=== PATIENT | female | born 1970 | race African-American/Black ===

== ENCOUNTER 2016-12-06 15:24 | Emergency (ER) | payer SELFPAY ==
[~2016-12-06] VITALS: Ht 170.2 cm; Wt 96.0 kg
[~2016-12-06 15:24] MED LIST: AMLO5TAB22 PO
[2016-12-06 15:26] VITALS: BP 148/98; PULSE 97; RESP 20; TEMP 98.3; O2SAT 97
--- NOTE | 2016-12-06 16:05 | RADRPT ---
EXAM DATE/TIME: 12/06/2016 15:37 [facility] COMPARISON: CHEST SINGLE AP, January 14, 2016, 13:02. INDICATIONS : Chest pain and numbness down left arm. MEDICAL HISTORY : Hypertension. SURGICAL HISTORY : None. ENCOUNTER: Initial ACUITY: 1 day PAIN SCORE: 8/10 LOCATION: Bilateral chest FINDINGS: A single view of the chest demonstrates the lungs to be symmetrically aerated without evidence of mas s, infiltrate or effusion. The cardiomediastinal contours are unremarkable. Osseous structures are intact. CONCLUSION: No acute disease. Michel Glynn MD on December 06, 2016 at 16:00 Board Certified Radiologist. This report was verified electronically.
[2016-12-06 16:30] LABS: AUTOMATED NEUTROPHIL # 2.2 TH/MM3 (1.8-7.7); BASOPHIL # 0.1 TH/MM3 (0-0.2); BASOPHIL % 1.2 % (0.0-2.0); EOSINOPHIL # 0.2 TH/MM3 (0-0.4); EOSINOPHIL % 4.5 % (0.0-4.0); HEMATOCRIT 34.1 % (35.0-46.0); HEMO FLAGS DIFF FINAL; LYMPH % 38.6 % (9.0-44.0); LYMPHOCYTE # 1.7 TH/MM3 (1.0-4.8); MEAN CELL VOLUME 77.3 FL (80.0-100.0); MEAN CORPUSCULAR HEMOGLOBIN 26.2 PG (27.0-34.0); MEAN CORPUSCULAR HGB CONC 33.9 % (32.0-36.0); MONO % 4.9 % (0.0-8.0); NEUT % 50.8 % (16.0-70.0); PLATELET COUNT 401 TH/MM3 (150-450); RED BLOOD COUNT 4.41 MIL/MM3 (4.00-5.30); WHITE BLOOD COUNT 4.3 TH/MM3 (4.0-11.0)
[2016-12-06 16:56] LABS: ANION GAP 10 MEQ/L (5-15); BICARBONATE 25.5 MEQ/L (21.0-32.0); BLOOD UREA NITROGEN 8 MG/DL (7-18); CHLORIDE 103 MEQ/L (98-107); GLOMERULAR FILTRATION RATE 85 ML/MIN (>89); POTASSIUM 3.5 MEQ/L (3.5-5.1); SODIUM (NA) 138 MEQ/L (136-145)
[2016-12-06 17:01] LABS: BETA HCG QUANT LESS THAN 1 MIU/ML (0-5); CREATINE KINASE 190 U/L (26-192)
[2016-12-06 17:14] LABS: CKMB 0.5 NG/ML (0.5-3.6)
[2016-12-06 19:02] VITALS: O2SAT 99
[2016-12-06 19:50] VITALS: BP 160/92; PULSE 78; RESP 18; O2SAT 98
--- NOTE | 2016-12-06 20:19 | PD ---
HPI Chief Complaint: Chest Pain Time Seen by Provider: 18:48 Travel History International Travel<30 days: No Contact w/Intl Traveler<30days: No Traveled to known affect area: No History of Present Illness HPI Is a 46-year-old female presents emergency Department with chest pain the left side of her chest as well as some pain in her left elbow. Patient states this is been on and off going for some time. Patient is still menstruating, has a history of high blood pressure without high cholesterol and is a nonsmoker. No family history of early MS. Patient did have a stress test approximately 11 months ago which was completely within normal limits. Patient states she also does have a history of anxiety. States his symptoms been going on all week. Denies any shortness of breath nausea or vomiting. PFSH Past Medical History Heart Rhythm Problems: No Cardiac Catheterization: No Cardiovascular Problems: Yes (HEART MURMUR) High Cholesterol: No Congestive Heart Failure: No Diabetes: No Diminished Hearing: No Gastrointestinal Disorders: Yes (IBS) Hypertension: Yes Thyroid Disease: Yes ?: Not : 7 Para: 5 Miscarriage: 2 Ovarian Cysts: Yes Tubal Ligation: Yes Past Surgical History Section: Yes (X1) Coronary Artery Bypass Graft: No Gynecologic Surgery: Yes () Family History Family Myocardial Infarction: Yes Social History Alcohol Use: Yes (WINE GLASSES EVERY NIGHT) Tobacco Use: Yes Substance Use: No Allergies-Medications (Allergen,Severity, Reaction): Coded Allergies: Codeine (Verified Allergy, Severe, 12/06/16) Hydrocodone (Verified Allergy, Severe, 12/06/16) Shellfish (Verified Allergy, Severe, 12/06/16) Reported Meds & Prescriptions Reported Meds & Active Scripts Active Amlodipine Besylate 5 mg (Amlodipine Besylate) 5 Mg Tab 1 Tab PO DAILY Review of Systems Except as stated in HPI: all other systems reviewed are Neg Physical Exam Narrative GENERAL: Well-developed well-nourished no apparent distress] SKIN: Warm and dry. HEAD: Atraumatic. Normocephalic. EYES: Pupils equal and round. No scleral icterus. No injection or drainage. ENT: No nasal bleeding or discharge. Mucous membranes pink and moist. NECK: Trachea midline. No JVD. CARDIOVASCULAR: Regular rate and rhythm. No murmur appreciated. 2+ bilateral equal pulses in all 4 extremities. RESPIRATORY: No accessory muscle use. Clear to auscultation. Breath sounds equal bilaterally. GASTROINTESTINAL: Abdomen soft, non-tender, nondistended. Hepatic and splenic margins not palpable. MUSCULOSKELETAL: No obvious deformities. No clubbing. No cyanosis. No edema. NEUROLOGICAL: Awake and alert. No obvious cranial nerve deficits. Motor grossly within normal limits. Normal speech. PSYCHIATRIC: Appropriate mood and affect; insight and judgment normal. Data Data Last Documented VS Vital Signs Date Time Temp Pulse Resp B/P Pulse Ox O2 Delivery O2 Flow Rate FiO2 12/06/16 19:50 78 18 160/92 98 Room Air 12/06/16 18:59 2 12/06/16 15:26 98.3 Orders Electrocardiogram (12/06/16 15:36) Complete Blood Count With Diff (12/06/16 15:36) Basic Metabolic Panel (Bmp) (12/06/16 15:36) Ckmb (Isoenzyme) Profile (12/06/16 15:36) Troponin I (12/06/16 15:36) Chest, Single Ap (12/06/16 15:36) Iv Access Insert/Monitor (12/06/16 15:36) Ecg Monitoring (12/06/16 15:36) Oxygen Administration (12/06/16 15:36) Oximetry (12/06/16 15:36) Beta Hcg (Quant/Titer) (12/06/16 15:36) CKMB (12/06/16 16:06) CKMB% (12/06/16 16:06) Electrocardiogram (12/06/16 ) Troponin I (12/06/16 18:49) Acetamin-Hydrocod 325-5 Mg (Earth 5-325 (12/06/16 20:45) Ondansetron Odt (Zofran Odt) (12/06/16 20:45) Labs Laboratory Tests Test 12/06/16 12/06/16 16:06 19:35 White Blood Count 4.3 TH/MM3 Red Blood Count 4.41 MIL/MM3 Hemoglobin 11.6 GM/DL Hematocrit 34.1 % Mean Corpuscular Volume 77.3 FL Mean Corpuscular Hemoglobin 26.2 PG Mean Corpuscular Hemoglobin 33.9 % Concent Red Cell Distribution Width 15.0 % Platelet Count 401 TH/MM3 Mean Platelet Volume 7.7 FL Neutrophils (%) (Auto) 50.8 % Lymphocytes (%) (Auto) 38.6 % Monocytes (%) (Auto) 4.9 % Eosinophils (%) (Auto) 4.5 % Basophils (%) (Auto) 1.2 % Neutrophils # (Auto) 2.2 TH/MM3 Lymphocytes # (Auto) 1.7 TH/MM3 Monocytes # (Auto) 0.2 TH/MM3 Eosinophils # (Auto) 0.2 TH/MM3 Basophils # (Auto) 0.1 TH/MM3 CBC Comment DIFF FINAL Differential Comment Sodium Level 138 MEQ/L Potassium Level 3.5 MEQ/L Chloride Level 103 MEQ/L Carbon Dioxide Level 25.5 MEQ/L Anion Gap 10 MEQ/L Blood Urea Nitrogen 8 MG/DL Creatinine 0.87 MG/DL Estimat Glomerular Filtration 85 ML/MIN Rate Random Glucose 87 MG/DL Calcium Level 8.8 MG/DL Total Creatine Kinase 190 U/L Creatine Kinase MB 0.5 NG/ML Troponin I LESS THAN 0.02 LESS THAN 0.02 NG/ML NG/ML Human Chorionic Gonadotropin, LESS THAN 1 Quant MIU/ML MDM Medical Decision Making Medical Screen Exam Complete: Yes Emergency Medical Condition: Yes Interpretation(s) EKG shows normal sinus rhythm with a left axis deviation late R-wave transition. No concerning ST T changes. Intervals within normal limits. Probable LVH. This is an abnormal EKG. EKG was repeated 4 hours after arrival and shows no change. Differential Diagnosis ACS seems unlikely, MS seems unlikely, chest wall pain, pneumonia, pericarditis, Narrative Course Patient roomed in the emergency department, troponins are negative 2, she appears well, chest x-ray negative, there are some non-concerning changes on her EKG mostly axis changes. Patient does have a stress test less than a year ago. Discussed with the patient that given her negative stress test is highly unlikely that should her symptoms are from heart at this time. I've suggested that she should consider chest pain center admission for further evaluation but she would rather go home and follow up with her primary care physician. Discussed with her that if symptoms return she should return to emergency department immediately. She was offered pain medicine and declined. Discussed that she needs to follow up with her primary care physician within the next week if she is not at a 0% risk of major adverse cardiac event. After this discussion she was re-offered admission to the chest pain center and again declined. Diagnosis Primary Impression: CHEST PAIN, UNSPECIFIED Referrals: Agustin Armendariz MD Disposition: 01 DISCHARGE HOME Condition: Stable Juan Valderrama MD Dec 06, 2016 20:19
[2016-12-06] MEDS ORDERED: ONDANSETRON ODT 4 MG TAB PO ONE (20:45)
[2016-12-06] MEDS ORDERED: ACETAMINOPHEN/HYDROcodone 325 MG/5 MG TAB PO ONE (20:45)
--- NOTE | 2016-12-07 16:55 | EKG ---
Date Performed: 12/06/2016 Time Performed: 19:33:18 PTAGE: 46 years EKG: Sinus rhythm VOLTAGE CRITERIA FOR LVH Since previous tracing, no significant change noted ABNORMAL ECG PREVIOUS TRACING : 12/06/2016 15.44 DOCTOR: Rodrigo Young Interpretating Date/Time 12/07/2016 16:53:47
--- NOTE | 2016-12-07 16:55 | EKG ---
Date Performed: 12/06/2016 Time Performed: 15:44:14 PTAGE: 46 years EKG: Sinus rhythm VOLTAGE CRITERIA FOR LVH Since previous tracing, no significant change noted ABNORMAL ECG PREVIOUS TRACING : 01/14/2016 18.28.58 DOCTOR: Rodrigo Young Interpretating Date/Time 12/07/2016 16:53:34
== END 2016-12-06 20:58 | disposition home or self-care (01) ==
LOC: NEPA 15:24
DX: R07.9 Chest pain, unspecified (principal); R94.31 Abnormal electrocardiogram [ECG] [EKG]; I10 Essential (primary) hypertension; K58.9 Irritable bowel syndrome, unspecified; Z72.0 Tobacco use
CPT/HCPCS: 71010; 80048; 82550; 82552; 84484; 84702; 85025; 93005

== ENCOUNTER 2017-05-07 09:58 | Observation (INO) | payer MEDICAID ==
[2017-05-07 10:00] VITALS: BP 194/95; PULSE 84; RESP 16; TEMP 97.8; O2SAT 99
[2017-05-07 10:12] VITALS: BP 158/89; PULSE 92; RESP 16; O2SAT 100
[2017-05-07] MEDS ORDERED: ASPIRIN 325 MG TAB PO ONE (10:15)
[2017-05-07 10:23] VITALS: O2SAT 100
--- NOTE | 2017-05-07 10:30 | PD ---
HPI Chief Complaint: Chest Pain Time Seen by Provider: 10:09 Travel History International Travel<30 days: No Contact w/Intl Traveler<30days: No Traveled to known affect area: No History of Present Illness HPI 46 years old female complains of chest pain. Patient states that she woke up this morning with numbness tingling sensation left arm and started having left- sided chest pain. Patient states the chest pain. Left-sided chest pressure pain with radiation to the neck to the back. Patient denies any nausea vomiting. Patient states that she had diaphoresis this morning. Patient states that the chest pain is not associated with exertion. Patient was seen in emergency room in December 2015 with chest pain. Treadmill stress test at that time was normal. Patient was seen in emergency room again in November 2016 with chest pain. 2 sets of cardiac enzymes and EKG were negative, and patient was discharged home. Patient has history hypertension, hyperlipidemia. Patient denies history diabetes. Patient is a nonsmoker. Patient has family history heart disease. On a scale of 1-10 the pain is is 6. PFSH Past Medical History Heart Rhythm Problems: No Cardiac Catheterization: No Cardiovascular Problems: Yes (HEART MURMUR) High Cholesterol: No Congestive Heart Failure: No Diabetes: No Diminished Hearing: No Gastrointestinal Disorders: Yes (IBS) Heparin Induced Thrombocytopen: No Hypertension: Yes Thyroid Disease: Yes Influenza Vaccination: No ?: Not : 7 Para: 5 Miscarriage: 2 Ovarian Cysts: Yes Tubal Ligation: Yes Past Surgical History Section: Yes (X1) Coronary Artery Bypass Graft: No Gynecologic Surgery: Yes () Family History Family Myocardial Infarction: Yes (maternal grandmother) Social History Alcohol Use: Yes (WINE GLASSES EVERY NIGHT) Tobacco Use: Yes Substance Use: No Allergies-Medications (Allergen,Severity, Reaction): Coded Allergies: Codeine (Verified Allergy, Severe, 05/07/17) Hydrocodone (Verified Allergy, Severe, 05/07/17) Shellfish (Verified Allergy, Severe, 05/07/17) Reported Meds & Prescriptions Reported Meds & Active Scripts Active No Active Prescriptions or Reported Medications Review of Systems General / Constitutional: No: Fever Eyes: No: Visual changes HENT: No: Headaches Cardiovascular: Positive: Chest Pain or Discomfort Respiratory: No: Shortness of Breath Gastrointestinal: No: Abdominal Pain Genitourinary: No: Dysuria Musculoskeletal: No: Pain Skin: No Rash Neurologic: No: Weakness Psychiatric: No: Depression Endocrine: No: Polydipsia Hematologic/Lymphatic: No: Easy Bruising Physical Exam Narrative GENERAL: Well-nourished, well-developed patient. SKIN: Focused skin assessment warm/dry. HEAD: Normocephalic. EYES: No scleral icterus. No injection or drainage. NECK: Supple, trachea midline. No JVD or lymphadenopathy. CARDIOVASCULAR: Regular rate and rhythm without murmurs, gallops, or rubs. RESPIRATORY: Breath sounds equal bilaterally. No accessory muscle use. GASTROINTESTINAL: Abdomen soft, non-tender, nondistended. MUSCULOSKELETAL: No cyanosis, or edema. BACK: Nontender without obvious deformity. No CVA tenderness. Neurologic exam normal. Data Data Last Documented VS Vital Signs Date Time Temp Pulse Resp B/P Pulse Ox O2 Delivery O2 Flow Rate FiO2 05/07/17 10:23 100 Room Air 05/07/17 10:12 92 16 158/89 05/07/17 10:00 97.8 Orders Electrocardiogram (05/07/17 10:14) Complete Blood Count With Diff (05/07/17 10:14) Comprehensive Metabolic Panel (05/07/17 10:14) Creatine Kinase (Cpk) (05/07/17 10:14) Troponin I (05/07/17 10:14) Prothrombin Time / Inr (Pt) (05/07/17 10:14) Act Partial Throm Time (Ptt) (05/07/17 10:14) Urinalysis - C+S If Indicated (05/07/17 10:14) Chest, Single Ap (05/07/17 10:14) Iv Access Insert/Monitor (05/07/17 10:14) Ecg Monitoring (05/07/17 10:14) Oximetry (05/07/17 10:14) Aspirin (Aspirin) (05/07/17 10:15) Labs Laboratory Tests Test 05/07/17 05/07/17 10:20 10:34 White Blood Count 5.9 TH/MM3 Red Blood Count 4.56 MIL/MM3 Hemoglobin 11.3 GM/DL Hematocrit 35.6 % Mean Corpuscular Volume 78.1 FL Mean Corpuscular Hemoglobin 24.8 PG Mean Corpuscular Hemoglobin 31.8 % Concent Red Cell Distribution Width 16.0 % Platelet Count 403 TH/MM3 Mean Platelet Volume 7.3 FL Neutrophils (%) (Auto) 63.5 % Lymphocytes (%) (Auto) 26.5 % Monocytes (%) (Auto) 4.5 % Eosinophils (%) (Auto) 4.5 % Basophils (%) (Auto) 1.0 % Neutrophils # (Auto) 3.8 TH/MM3 Lymphocytes # (Auto) 1.6 TH/MM3 Monocytes # (Auto) 0.3 TH/MM3 Eosinophils # (Auto) 0.3 TH/MM3 Basophils # (Auto) 0.1 TH/MM3 CBC Comment DIFF FINAL Differential Comment Prothrombin Time 10.2 SEC Prothromb Time International 0.9 RATIO Ratio Activated Partial 29.4 SEC Thromboplast Time Sodium Level 139 MEQ/L Potassium Level 4.0 MEQ/L Chloride Level 104 MEQ/L Carbon Dioxide Level 25.7 MEQ/L Anion Gap 9 MEQ/L Blood Urea Nitrogen 10 MG/DL Creatinine 0.93 MG/DL Estimat Glomerular Filtration 79 ML/MIN Rate Random Glucose 112 MG/DL Calcium Level 9.3 MG/DL Total Bilirubin 0.8 MG/DL Aspartate Amino Transf 14 U/L (AST/SGOT) Alanine Aminotransferase 15 U/L (ALT/SGPT) Alkaline Phosphatase 103 U/L Total Creatine Kinase 170 U/L Troponin I LESS THAN 0.02 NG/ML Total Protein 8.9 GM/DL Albumin 4.1 GM/DL Urine Color YELLOW Urine Turbidity CLEAR Urine pH 6.0 Urine Specific [place] 1.029 Urine Protein TRACE mg/dL Urine Glucose (UA) NEG mg/dL Urine Ketones NEG mg/dL Urine Occult Blood NEG Urine Nitrite NEG Urine Bilirubin NEG Urine Urobilinogen LESS THAN 2.0 MG/DL Urine Leukocyte Esterase NEG Urine WBC LESS THAN 1 /hpf Urine Squamous Epithelial 2 /hpf Cells Urine Mucus FEW /lpf Microscopic Urinalysis Comment CULT NOT INDICATED MDM Medical Decision Making Medical Screen Exam Complete: Yes Emergency Medical Condition: Yes Interpretation(s) 11:09 AM. EKG shows sinus rhythm nonspecific ST-T wave change. CBC within normal limit. MCV 78.1. UA is negative. Last Impressions Chest X-Ray 05/07/17 1014 Signed Impressions: Service Date/Time: Sunday, May 07, 2017 10:26 - CONCLUSION: No acute cardiopulmonary disease. Jerry Gustafson MD 11:28 AM. Cardiac enzymes are normal. Differential Diagnosis Differential diagnosis: Angina, GA, PE, pneumothorax, musculoskeletal. Narrative Course 46 years old female with chest pain. Aspirin 325 g by mouth given. Patient will be admitted to the chest pain center. Diagnosis Primary Impression: CHEST PAIN, UNSPECIFIED Admitting Information Admitting Physician Requests: Observation Scripts No Active Prescriptions or Reported Meds Suman Garvey MD May 07, 2017 10:30
[2017-05-07 10:44] LABS: AUTOMATED NEUTROPHIL # 3.8 TH/MM3 (1.8-7.7); BASOPHIL # 0.1 TH/MM3 (0-0.2); EOSINOPHIL # 0.3 TH/MM3 (0-0.4); EOSINOPHIL % 4.5 % (0.0-4.0); HEMATOCRIT 35.6 % (35.0-46.0); HEMO FLAGS DIFF FINAL; LYMPH % 26.5 % (9.0-44.0); LYMPHOCYTE # 1.6 TH/MM3 (1.0-4.8); MEAN CELL VOLUME 78.1 FL (80.0-100.0); MEAN CORPUSCULAR HEMOGLOBIN 24.8 PG (27.0-34.0); MEAN CORPUSCULAR HGB CONC 31.8 % (32.0-36.0); MONO % 4.5 % (0.0-8.0); NEUT % 63.5 % (16.0-70.0); PLATELET COUNT 403 TH/MM3 (150-450); RED BLOOD COUNT 4.56 MIL/MM3 (4.00-5.30); WHITE BLOOD COUNT 5.9 TH/MM3 (4.0-11.0)
[2017-05-07 10:53] LABS: APTT (PATIENT) 29.4 SEC (24.3-30.1); INTERNATIONAL NORMALIZED RATIO 0.9 RATIO; PROTHROMBIN TIME - PATIENT 10.2 SEC (9.8-11.6)
[2017-05-07 11:01] LABS: BLOOD, URINE NEG (NEG); COMMENT (UR) CULT NOT INDICATED; CULTURE IF INDICATED CULT NOT INDICATED; GLUCOSE,URINE NEG (NEG); KETONE, URINE NEG (NEG); MUCUS URINE FEW /lpf (OCC); NITRITE,URINE NEG (NEG); SQUAMOUS EPITHELIAL CELL URINE 2 /hpf (0-5); URINE COLOR YELLOW (YELLW/STRAW)
[2017-05-07 11:06] LABS: ALKALINE PHOSPHATASE 103 U/L (45-117); ALT (GPT) 15 U/L (10-53); ANION GAP 9 MEQ/L (5-15); AST (GOT) 14 U/L (15-37); BICARBONATE 25.7 MEQ/L (21.0-32.0); BLOOD UREA NITROGEN 10 MG/DL (7-18); CHLORIDE 104 MEQ/L (98-107); CREATINE KINASE 170 U/L (26-192); GLOMERULAR FILTRATION RATE 79 ML/MIN (>89); SODIUM (NA) 139 MEQ/L (136-145); TOTAL BILIRUBIN ADULT 0.8 MG/DL (0.2-1.0)
--- NOTE | 2017-05-07 11:21 | RADRPT ---
EXAM DATE/TIME: 05/07/2017 10:26 [facility] COMPARISON: CHEST SINGLE AP, December 06, 2016, 15:37. INDICATIONS : Chest pain starting today MEDICAL HISTORY : None. SURGICAL HISTORY : None. ENCOUNTER: Initial ACUITY: 1 day PAIN SCORE: 8/10 LOCATION: Left chest FINDINGS: The lungs are clear without infiltrate, nodule, or mass. There is no appreciable pleural effusion fo r technique. Heart and mediastinum are unremarkable. CONCLUSION: No acute cardiopulmonary disease. Jerry Gustafson MD on May 07, 2017 at 11:19 Board Certified Radiologist. This report was verified electronically.
[2017-05-07] MEDS ORDERED: ACETAMINOPHEN 500 MG CPLT PO PRN (11:45)
[2017-05-07] MEDS ORDERED: ONDANSETRON HCL 4 MG/2 ML VIAL IV PRN (11:45)
[2017-05-07] MEDS ORDERED: SODIUM CHLORIDE 0.9% FLUSH 10 ML FLUSH IV FLUSH PRN (11:45)
[2017-05-07] MEDS ORDERED: cloNIDine HCL 0.1 MG TAB PO PRN (13:15)
[2017-05-07] MEDS ORDERED: KETOROLAC TROMETHAMINE 30 MG/ML (IVP) VIAL IVP ONE (13:15)
--- NOTE | 2017-05-07 13:15 | HHI.HP ---
[facility] Primary Care Physician Michel Burger MD Chief Complaint Chest pain History of Present Illness This is a 46-year-old female that presents to the ED via private vehicle with her girlfriend with a complaint of developing a left-sided chest discomfort this morning. She states she woke up at 7:00 and felt sweaty. By the same time she has some numbness and tingling in her left arm. Then a few minutes she developed a left-sided chest discomfort which she describes as a tightness beneath the left breast. She states it felt like it was a gas sensation. It was intermittent discomfort lasting about 10-15 minutes at a time. Found nothing in particular bring on the discomfort. Nothing really seemed to worsen it. She states she had a similar episode about a year ago and states that is when she had her stress test here. Initially she cannot think of anything that may have caused the discomfort but cannot recall carrying heavy groceries last evening. She states there have enough that she had to stop, put things down and make an extra next her trip. Denies recent illness. Denies fevers or chills. Review of Systems General: Patient denies fevers, chills recent, and recent travel HEENT: Patient denies headache, sore throat, difficulty swallowing. Cardiovascular: Has the chest discomfort as mentioned above. Denies sensation of heart beating rapidly or irregularly. No syncope. She states she woke up sweating. Respiratory: She was initially short of breath. Denies inspirational chest discomfort. Denies coughing wheezing or hemoptysis. GI: Patient denies nausea, vomiting, diarrhea, abdominal pain, bloody stools. Musculoskeletal: Patient denies joint pain or edema. Denies calf pain or edema. Neurovascular: Complained of numbness and tingling in her left arm initially. Patient denies weakness in extremities. Denies headache. Endocrine: Denies polyuria and polydipsia. Hematologic: Denies easy bruising. Skin: Denies rash or itching. Past Family Social History Allergies: Coded Allergies: Codeine (Verified Allergy, Severe, 05/07/17) Hydrocodone (Verified Allergy, Severe, 05/07/17) Shellfish (Verified Allergy, Severe, 05/07/17) Past Medical History States that she was told that she has hypertension but has never been on medication. Denies hyperlipidemia, diabetes, and CAD. She was a past smoker but quit 2 years ago. Past Surgical History and tubal ligation. Reported Medications Reported Meds & Active Scripts Active No Active Prescriptions or Reported Medications Active Ordered Medications Current Medications Medications (Trade) Dose Ordered Sig/Jovany Route Start Time Stop Time Status Last Admin (NS Flush) 2 ml UNSCH PRN IV FLUSH 05/07/17 11:45 (NS Flush) 2 ml BID IV FLUSH 05/07/17 21:00 (Tylenol) 500 mg Q4H PRN PO 05/07/17 11:45 (Zofran Inj) 4 mg Q6H PRN IV 05/07/17 11:45 Family History She states that her brother has CAD and had a stent in his 30s. Social History Patient quit smoking cigarettes 2 years ago but prior that she smoked approximately one half pack of cigarettes daily for 6 years. Has an occasional glass of wine. Denies illicit drugs. 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 Physical Exam Vital Signs Vital Signs Date Time Temp Pulse Resp B/P Pulse Ox O2 Delivery O2 Flow Rate FiO2 05/07/17 10:23 100 Room Air 05/07/17 10:12 92 16 158/89 100 Room Air 05/07/17 10:00 97.8 84 16 194/95 99 Physical Exam GENERAL: This is a well-nourished, well-developed patient, in no apparent distress. Patient speaks in clear complete sentences. Patient is pleasant. HEENT: Head is atraumatic and normocephalic. Neck is supple without lymphadenopathy and trachea is midline. No JVD or carotid bruits. CARDIOVASCULAR: Regular rate and rhythm without murmurs, gallops, or rubs. RESPIRATORY: Clear to auscultation. Breath sounds equal bilaterally. No wheezes , rales, or rhonchi. Essentially her entire left chest wall is tender. More so in the left upper chest as well as beneath her left breast. This is the discomfort that she has been having.. No use of accessory muscles. GASTROINTESTINAL: Abdomen is nontender, nondistended. Abdomen soft. No obvious pulsatile mass or bruit. No CVA tenderness. Strong femoral pulses bilaterally. Normal bowel sounds in all quadrants. MUSCULOSKELETAL: Patient is moving upper and lower extremities freely. No calf tenderness or edema, no Homans sign. Strong pulses in upper and lower extremities. NEUROLOGICAL: Patient is alert and oriented. Cranial nerves 2-12 are grossly intact. No focal deficits and speech is clear. SKIN: No rash and turgor is normal. Laboratory Laboratory Tests Test 05/07/17 05/07/17 10:20 10:34 White Blood Count 5.9 Red Blood Count 4.56 Hemoglobin 11.3 Hematocrit 35.6 Mean Corpuscular Volume 78.1 Mean Corpuscular Hemoglobin 24.8 Mean Corpuscular Hemoglobin 31.8 Concent Red Cell Distribution Width 16.0 Platelet Count 403 Mean Platelet Volume 7.3 Neutrophils (%) (Auto) 63.5 Lymphocytes (%) (Auto) 26.5 Monocytes (%) (Auto) 4.5 Eosinophils (%) (Auto) 4.5 Basophils (%) (Auto) 1.0 Neutrophils # (Auto) 3.8 Lymphocytes # (Auto) 1.6 Monocytes # (Auto) 0.3 Eosinophils # (Auto) 0.3 Basophils # (Auto) 0.1 CBC Comment DIFF FINAL Differential Comment Prothrombin Time 10.2 Prothromb Time International 0.9 Ratio Activated Partial 29.4 Thromboplast Time Sodium Level 139 Potassium Level 4.0 Chloride Level 104 Carbon Dioxide Level 25.7 Anion Gap 9 Blood Urea Nitrogen 10 Creatinine 0.93 Estimat Glomerular Filtration 79 Rate Random Glucose 112 Calcium Level 9.3 Total Bilirubin 0.8 Aspartate Amino Transf 14 (AST/SGOT) Alanine Aminotransferase 15 (ALT/SGPT) Alkaline Phosphatase 103 Total Creatine Kinase 170 Troponin I LESS THAN 0.02 Total Protein 8.9 Albumin 4.1 Urine Color YELLOW Urine Turbidity CLEAR Urine pH 6.0 Urine Specific [place] 1.029 Urine Protein TRACE Urine Glucose (UA) NEG Urine Ketones NEG Urine Occult Blood NEG Urine Nitrite NEG Urine Bilirubin NEG Urine Urobilinogen LESS THAN 2.0 Urine Leukocyte Esterase NEG Urine WBC LESS THAN 1 Urine Squamous Epithelial 2 Cells Urine Mucus FEW Microscopic Urinalysis Comment CULT NOT INDICATED Result Diagram: 05/07/17 1020 05/07/17 1020 Imaging Last 48 hours Impressions Chest X-Ray 05/07/17 1014 Signed Impressions: Service Date/Time: Sunday, May 07, 2017 10:26 - CONCLUSION: No acute cardiopulmonary disease. Jerry Gustafson MD Course Initial EKG is sinus rhythm rate of [address] segment depressions or elevations. Assessment and Plan Assessment and Plan * Atypical chest pain: Patient will continue to have serial cardiac enzymes and EKGs for ruling out purposes. She will be evaluated by Dr. Holman of cardiology and at that point we'll determine if she needs stress testing. We' ll give her Toradol to help with her musculoskeletal discomfort. She will need to follow-up with PCP. Abran Frausto May 07, 2017 13:15
[2017-05-07 13:36] VITALS: BP 133/78; PULSE 69; RESP 17; TEMP 98.6; O2SAT 99
--- NOTE | 2017-05-07 14:55 | HHI.DCPOC ---
Discharge Care Plan Diagnosis: (1) Atypical chest pain Goals to Promote Your Health * To prevent worsening of your condition and complications * To maintain your health at the optimal level Directions to Meet Your Goals Take your medications as prescribed Follow your dietary instruction Follow activity as directed Keep your appointments as scheduled Take your immunizations and boosters as scheduled If your symptoms worsen call your PCP, if no PCP go to Urgent Care Center or Emergency Room Smoking is Dangerous to Your Health. Avoid second hand smoke Call the 24-hour hour crisis hotline for domestic abuse at Abran Frausto May 07, 2017 14:55
[2017-05-07 15:18] VITALS: PULSE 85
--- NOTE | 2017-05-07 15:35 | EKG ---
Date Performed: 05/07/2017 Time Performed: 10:11:20 PTAGE: 46 years EKG: Sinus rhythm POSSIBLE LEFT ATRIAL ENLARGEMENT POSSIBLE LEFT VENTRICULAR HYPERTROPHY ABNORMAL ECG NO PREVIOUS TRACING DOCTOR: Edilberto Holman Interpretating Date/Time 05/07/2017 15:34:27
[2017-05-07 16:00] VITALS: BP 129/76; PULSE 89; RESP 18; TEMP 98.4; O2SAT 99
[2017-05-07] MEDS ORDERED: SODIUM CHLORIDE 0.9% FLUSH 10 ML FLUSH IV FLUSH SCH (21:00)
== END 2017-05-07 17:03 | disposition home or self-care (01) ==
LOC: NEPE 09:58 → NEDA 11:34 → NEPGCP 13:00
DX: R07.89 Other chest pain (principal); R20.0 Anesthesia of skin; I10 Essential (primary) hypertension; E78.5 Hyperlipidemia, unspecified; I51.7 Cardiomegaly; Z87.891 Personal history of nicotine dependence; Z82.49 Family history of ischemic heart disease and other diseases of the circulatory system; E07.9 Disorder of thyroid, unspecified
CPT/HCPCS: 71010; 80053; 81001; 82550; 84484; 85025; 85610; 85730; 93005; 99285; G0378; J1885

== ENCOUNTER 2017-10-01 13:18 | Emergency (ER) | payer SELFPAY ==
[~2017-10-01] VITALS: Ht 170.2 cm; Wt 92.0 kg
[2017-10-01 13:22] VITALS: BP 156/93; PULSE 82; RESP 14; TEMP 98.5; O2SAT 100
--- NOTE | 2017-10-01 14:04 | PD ---
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 Patient states that she had not had a period in 4 months and started 3 weeks ago. Patient states that she had a "regular cycle" during this time but stopped for 2 days and then started back with heavy flow. Patient states that she is passing clots and has recently started cramping in the lower pelvic region. Patient also says that she has been feeling a little weak with occasional heart palpitations. Patient states that she also is having hot flashes. Patient denies fever or chills. Patient says that she has not seen a primary care physician. Patient is monogamous with one female. Patient denies dysuria or abdominal pain. PFSH Past Medical History Heart Rhythm Problems: No Cardiac Catheterization: No Cardiovascular Problems: Yes (HEART MURMUR) High Cholesterol: No Congestive Heart Failure: No Diabetes: No Diminished Hearing: No Gastrointestinal Disorders: Yes (IBS) Heparin Induced Thrombocytopen: No Hypertension: Yes Thyroid Disease: Yes ?: Not LMP: 10/01/17 : 7 Para: 5 Miscarriage: 2 Ovarian Cysts: Yes Tubal Ligation: Yes Past Surgical History Section: Yes (X1) Coronary Artery Bypass Graft: No Gynecologic Surgery: Yes () Family History Family Myocardial Infarction: Yes (maternal grandmother) Social History Alcohol Use: Yes (WINE GLASSES EVERY NIGHT) Tobacco Use: No Substance Use: No Allergies-Medications (Allergen,Severity, Reaction): Coded Allergies: codeine (Unverified Allergy, Severe, 10/01/17) hydrocodone (Unverified Allergy, Severe, 10/01/17) shellfish derived (Unverified Allergy, Severe, 10/01/17) Reported Meds & Prescriptions Reported Meds & Active Scripts Active No Active Prescriptions or Reported Medications Review of Systems Except as stated in HPI: all other systems reviewed are Neg Physical Exam Narrative GENERAL: Well-nourished, well-developed patient. SKIN: Focused skin assessment warm/dry. HEAD: Normocephalic. EYES: No scleral icterus. No injection or drainage. NECK: Supple, trachea midline. No JVD or lymphadenopathy. CARDIOVASCULAR: Regular rate and rhythm without murmurs, gallops, or rubs. RESPIRATORY: Breath sounds equal bilaterally. No accessory muscle use. GASTROINTESTINAL: Abdomen soft, non-tender, nondistended. Patient refused pelvic exam. MUSCULOSKELETAL: No cyanosis, or edema. BACK: Nontender without obvious deformity. No CVA tenderness. Data Data Last Documented VS Vital Signs Date Time Temp Pulse Resp B/P (MAP) Pulse Ox O2 Delivery O2 Flow Rate FiO2 10/01/17 13:22 98.5 82 14 156/93 (114) 100 Orders Orders Urinalysis - C+S If Indicated (10/01/17 13:50) Ua Includes Microscopic (10/01/17 13:50) Complete Blood Count With Diff (10/01/17 14:00) Ed Discharge Order (10/01/17 15:30) Labs Laboratory Tests Test 10/01/17 14:30 White Blood Count 6.5 TH/MM3 Red Blood Count 4.37 MIL/MM3 Hemoglobin 11.2 GM/DL Hematocrit 34.4 % Mean Corpuscular Volume 78.6 FL Mean Corpuscular Hemoglobin 25.6 PG Mean Corpuscular Hemoglobin Concent 32.5 % Red Cell Distribution Width 14.9 % Platelet Count 424 TH/MM3 Mean Platelet Volume 7.9 FL Neutrophils (%) (Auto) 63.3 % Lymphocytes (%) (Auto) 28.8 % Monocytes (%) (Auto) 4.0 % Eosinophils (%) (Auto) 3.1 % Basophils (%) (Auto) 0.8 % Neutrophils # (Auto) 4.1 TH/MM3 Lymphocytes # (Auto) 1.9 TH/MM3 Monocytes # (Auto) 0.3 TH/MM3 Eosinophils # (Auto) 0.2 TH/MM3 Basophils # (Auto) 0.1 TH/MM3 CBC Comment DIFF FINAL Differential Comment Urine Color YELLOW Urine Turbidity CLEAR Urine pH 5.5 Urine Specific Vest 1.021 Urine Protein NEG mg/dL Urine Glucose (UA) NEG mg/dL Urine Ketones NEG mg/dL Urine Occult Blood LARGE Urine Nitrite NEG Urine Bilirubin NEG Urine Urobilinogen LESS THAN 2.0 MG/DL Urine Leukocyte Esterase NEG Urine RBC /hpf Urine WBC 4 /hpf Urine Squamous Epithelial Cells 1 /hpf Microscopic Urinalysis Comment CULT NOT INDICATED MDM Medical Decision Making Medical Screen Exam Complete: Yes Emergency Medical Condition: Yes Differential Diagnosis Menorrhagia, metromenorrhagia, menstrual cycle Narrative Course 46y female presents to emergency department complaining of 3 weeks of vaginal bleeding. Patient states that she had not had a period in 4 months and started 3 weeks ago. Patient states that she had a "regular cycle" but stopped for 2 days and then started back. Patient states that she is passing clots and has recently started cramping in the lower pelvic region. Patient also says that she has been feeling a little weak with mild heart palpitations. Patient states that she also is having hot flashes and feels bloated with flatulence. Patient denies fever or chills. Patient says that she has not seen a primary care physician. Patient is monogamous with one female. Patient denies dysuria or abdominal pain. Vital signs stable Patient refused pelvic exam. I explained to patient risk versus benefit. Patient is an alert and competent adult. She does not appear to be intoxicated or otherwise and the influence. Physical exam- mild tenderness palpation of the suprapubic region. Explained to patient the likely diagnoses but she requires follow-up with gynecology. Patient understood. I also explained to the patient that she has a mild anemia that should be followed up on. Patient understood and will comply. Advised patient to follow up with her primary care physician. Advised patient followed bull chain operator. Patient states that she will call a bull chain operator on Tuesday for an appointment. Advised to return to the emergency department for worsening or persistent symptoms. Diagnosis Primary Impression: Menorrhagia Qualified Codes: N92.1 - Excessive and frequent menstruation with irregular cycle Additional Impression: Anemia Qualified Codes: D64.9 - Anemia, unspecified Referrals: [facility] Additional Instructions: Advised patient to follow up with her primary care physician within 2-3 days. Advised patient to follow up with bull chain operator. Scripts No Active Prescriptions or Reported Meds Disposition: 01 DISCHARGE HOME Condition: Stable Isa Grayson Oct 01, 2017 14:04
[2017-10-01 15:13] LABS: AUTOMATED NEUTROPHIL # 4.1 TH/MM3 (1.8-7.7); BASOPHIL # 0.1 TH/MM3 (0-0.2); BASOPHIL % 0.8 % (0.0-2.0); EOSINOPHIL # 0.2 TH/MM3 (0-0.4); EOSINOPHIL % 3.1 % (0.0-4.0); HEMATOCRIT 34.4 % (35.0-46.0); HEMOGLOBIN 11.2 GM/DL (11.6-15.3); LYMPH % 28.8 % (9.0-44.0); LYMPHOCYTE # 1.9 TH/MM3 (1.0-4.8); MEAN CELL VOLUME 78.6 FL (80.0-100.0); MEAN CORPUSCULAR HEMOGLOBIN 25.6 PG (27.0-34.0); MEAN CORPUSCULAR HGB CONC 32.5 % (32.0-36.0); MEAN PLATELET VOLUME 7.9 FL (7.0-11.0); MONOCYTE # 0.3 TH/MM3 (0-0.9); NEUT % 63.3 % (16.0-70.0); PLATELET COUNT 424 TH/MM3 (150-450); RED BLOOD COUNT 4.37 MIL/MM3 (4.00-5.30); RED CELL DISTRIBUTION WIDTH 14.9 % (11.6-17.2); WHITE BLOOD COUNT 6.5 TH/MM3 (4.0-11.0)
[2017-10-01 15:19] LABS: BILIRUBIN, URINE NEG (NEG); BLOOD, URINE LARGE (NEG); GLUCOSE,URINE NEG (NEG); KETONE, URINE NEG (NEG); NITRITE,URINE NEG (NEG); PH, URINE 5.5 (5.0-8.5); SQUAMOUS EPITHELIAL CELL URINE 1 /hpf (0-5); URINE COLOR YELLOW (YELLW/STRAW); URINE LEUKOCYTE ESTERASE NEG (NEG)
== END 2017-10-01 15:39 | disposition home or self-care (01) ==
LOC: NEPD 13:18
DX: N92.1 Excessive and frequent menstruation with irregular cycle (principal); D64.9 Anemia, unspecified
CPT/HCPCS: 81001; 85025; 99281

== ENCOUNTER 2017-10-03 16:58 | Emergency (ER) | payer SELFPAY ==
[~2017-10-03] VITALS: Ht 170.2 cm; Wt 94.5 kg
[2017-10-03 16:59] VITALS: BP 171/86; PULSE 85; RESP 14; TEMP 98.9; O2SAT 99
[2017-10-03] MEDS ORDERED: MORPHINE SULFATE 2 MG/ML INJ IV PUSH ONE (18:00)
[2017-10-03] MEDS ORDERED: KETOROLAC TROMETHAMINE 30 MG/ML (IVP) VIAL IV PUSH ONE (18:00)
[2017-10-03] MEDS ORDERED: SODIUM CHLOR 0.9% 1000 ML INJ 1,000 ML IV ONE (18:00)
[2017-10-03 18:57] LABS: BASOPHIL # 0.1 TH/MM3 (0-0.2); BASOPHIL % 1.1 % (0.0-2.0); EOSINOPHIL # 0.3 TH/MM3 (0-0.4); EOSINOPHIL % 4.8 % (0.0-4.0); HEMATOCRIT 32.2 % (35.0-46.0); HEMOGLOBIN 10.2 GM/DL (11.6-15.3); LYMPH % 35.7 % (9.0-44.0); MEAN CELL VOLUME 79.5 FL (80.0-100.0); MEAN CORPUSCULAR HEMOGLOBIN 25.1 PG (27.0-34.0); MEAN CORPUSCULAR HGB CONC 31.5 % (32.0-36.0); MEAN PLATELET VOLUME 7.7 FL (7.0-11.0); MONO % 4.7 % (0.0-8.0); MONOCYTE # 0.3 TH/MM3 (0-0.9); NEUT % 53.7 % (16.0-70.0); PLATELET COUNT 399 TH/MM3 (150-450); RED BLOOD COUNT 4.05 MIL/MM3 (4.00-5.30); RED CELL DISTRIBUTION WIDTH 15.2 % (11.6-17.2); WHITE BLOOD COUNT 5.6 TH/MM3 (4.0-11.0)
[2017-10-03 19:11] VITALS: BP 162/92; PULSE 73; RESP 18; O2SAT 100
[2017-10-03 19:18] LABS: BACTERIA, URINE FEW /hpf; BILIRUBIN, URINE NEG (NEG); BLOOD, URINE LARGE (NEG); GLUCOSE,URINE NEG (NEG); KETONE, URINE NEG (NEG); NITRITE,URINE NEG (NEG); PH, URINE 5.5 (5.0-8.5); SQUAMOUS EPITHELIAL CELL URINE 2 /hpf (0-5); URINE LEUKOCYTE ESTERASE SMALL (NEG)
[2017-10-03 19:22] LABS: ALKALINE PHOSPHATASE 98 U/L (45-117); ALT (GPT) 18 U/L (10-53); TOTAL BILIRUBIN ADULT 0.5 MG/DL (0.2-1.0); TOTAL PROTEIN 8.1 GM/DL (6.4-8.2)
[2017-10-03 19:23] LABS: URINE COLOR LIGHT-RED (YELLW/STRAW)
[2017-10-03 19:30] LABS: ALBUMIN 3.6 GM/DL (3.4-5.0); AST (GOT) 24 U/L (15-37); BICARBONATE 27.7 MEQ/L (21.0-32.0); BLOOD UREA NITROGEN 12 MG/DL (7-18); CALCIUM 8.4 MG/DL (8.5-10.1); CHLORIDE 104 MEQ/L (98-107); CREATININE 0.91 MG/DL (0.50-1.00); GLOMERULAR FILTRATION RATE 81 ML/MIN (>89); GLUCOSE,RANDOM 86 MG/DL (74-106); SODIUM (NA) 137 MEQ/L (136-145)
--- NOTE | 2017-10-03 20:04 | RADRPT ---
EXAM DATE/TIME: 10/03/2017 18:35 [facility] COMPARISON: No previous studies available for comparison. INDICATIONS : Abnormal vaginal bleeding. MEDICAL HISTORY : . Thyroid disease. Syncope. Hypertension. Heart murmur. IBS. Ovarian cysts. SURGICAL HISTORY : Tubal ligation. section. ENCOUNTER: Initial ACUITY: 3 weeks PAIN SCORE: 5/10 LOCATION: Bilateral pelvis MEASUREMENTS: UTERUS: 8.5 x 4.9 x 5.0 cm ENDOMETRIAL STRIPE: 4 mm RIGHT OVARY: 4.5 x 5.0 x 2.1 cm LEFT OVARY: 2.1 x 1.2 x 0.9 cm FINDINGS: UTERUS: The myometrium has homogeneous echotexture without mass. RIGHT OVARY: There are 2 cysts in the ovary, both around and demonstrate good through transmission without abnorma l flow by color Doppler. These measure 2.6 x 2.1 cm and 2.4 x 2.0 cm. LEFT OVARY: Ovary contains no mass or significant cystic lesion. MISCELLANEOUS: There is a minimal amount of free fluid in the cul-de-sac. CONCLUSION: 1. 2 cysts in the right ovary measuring up to 2.6 cm. 2. No endometrial thickening. 3. Minimal amount of free fluid in the cul-de-sac. Cornelio De La Rosa MD on October 03, 2017 at 19:59 Board Certified Radiologist. This report was verified electronically.
[2017-10-03] MEDS ORDERED: TRAM50TA PO (20:34)
--- NOTE | 2017-10-03 20:34 | PD ---
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 This has been going on for the past 3 weeks. She was seen here a few days ago and discharged home. She says she tried to call the automotive collision estimator today, but they did not get back to her. She says she continues to pass clots, but today she started to have pain to her lower abdomen, which brought her into the ED. She tried taking Advil at home without relief. She says she occasionally feels lightheaded. She denies shortness of breath or palpitations. She denies urinary symptoms. PFSH Past Medical History Heart Rhythm Problems: No Cardiac Catheterization: No Cardiovascular Problems: Yes (HEART MURMUR) High Cholesterol: No Congestive Heart Failure: No Diabetes: No Diminished Hearing: No Gastrointestinal Disorders: Yes (IBS) Heparin Induced Thrombocytopen: No Hypertension: Yes Thyroid Disease: Yes Tetanus Vaccination: > 5 Years Influenza Vaccination: No ?: Not : 7 Para: 5 Miscarriage: 2 Ovarian Cysts: Yes Tubal Ligation: Yes Past Surgical History Section: Yes (X1) Coronary Artery Bypass Graft: No Gynecologic Surgery: Yes () Family History Family Myocardial Infarction: Yes (maternal grandmother) Social History Alcohol Use: Yes (WINE GLASSES EVERY NIGHT) Tobacco Use: No Substance Use: No Allergies-Medications (Allergen,Severity, Reaction): Coded Allergies: codeine (Verified Allergy, Severe, rash, 10/03/17) hydrocodone (Verified Allergy, Severe, rash, 10/03/17) shellfish derived (Verified Allergy, Severe, rash, 10/03/17) Reported Meds & Prescriptions Reported Meds & Active Scripts Active No Active Prescriptions or Reported Medications Review of Systems Except as stated in HPI: all other systems reviewed are Neg General / Constitutional: No: Fever, Chills Eyes: No: Blurred Vision HENT: Positive: Lightheadedness, No: Headaches Cardiovascular: No: Chest Pain or Discomfort, Palpitations Respiratory: No: Shortness of Breath Gastrointestinal: Positive: Abdominal Pain, No: Nausea, Vomiting Genitourinary: Positive: Vaginal Bleeding Musculoskeletal: No: Myalgias, Edema Skin: No Rash, No Change in Pigmentation Neurologic: No: Weakness, Dizziness Physical Exam Narrative GENERAL: Awake and alert, in no acute distress. SKIN: Focused skin assessment warm/dry. HEAD: Atraumatic. Normocephalic. EYES: Pupils equal and round. No scleral icterus. No conjunctival pallor. ENT: Mucous membranes pink and moist. NECK: Trachea midline. No JVD. CARDIOVASCULAR: Regular rate and rhythm. No murmur appreciated. RESPIRATORY: No accessory muscle use. Clear to auscultation. Breath sounds equal bilaterally. GASTROINTESTINAL: Abdomen soft, nondistended. Tender to palpation across the lower abdomen. No rebound or guarding. No CVA tenderness. : Exam performed in the presence of a nurse. Clots present in the vaginal vault. No CMT. MUSCULOSKELETAL: No obvious deformities. No clubbing. No cyanosis. No edema. NEUROLOGICAL: Awake and alert. No obvious cranial nerve deficits. Motor grossly within normal limits. Normal speech. PSYCHIATRIC: Appropriate mood and affect; insight and judgment normal. Data Data Last Documented VS Vital Signs Date Time Temp Pulse Resp B/P (MAP) Pulse Ox O2 Delivery O2 Flow Rate FiO2 10/03/17 19:11 73 18 162/92 (115) 100 Room Air 10/03/17 16:59 98.9 Orders Orders Complete Blood Count With Diff (10/03/17 17:54) Comprehensive Metabolic Panel (10/03/17 17:54) Type And Screen (10/03/17 17:54) Iv Access Insert/Monitor (10/03/17 17:54) Ed Urine Pregnancytest Poc (10/03/17 17:54) Urinalysis - C+S If Indicated (10/03/17 17:54) Sodium Chlor 0.9% 1000 Ml Inj (Ns 1000 M (10/03/17 18:00) Ketorolac Inj (Toradol Inj) (10/03/17 18:00) Morphine Inj (Morphine Inj) (10/03/17 18:00) Urine Culture (10/03/17 18:10) Us Pelvis Comp W Dop Transvag (10/03/17 ) Labs Laboratory Tests Test 10/03/17 18:00 10/03/17 18:10 White Blood Count 5.6 TH/MM3 Red Blood Count 4.05 MIL/MM3 Hemoglobin 10.2 GM/DL Hematocrit 32.2 % Mean Corpuscular Volume 79.5 FL Mean Corpuscular Hemoglobin 25.1 PG Mean Corpuscular Hemoglobin Concent 31.5 % Red Cell Distribution Width 15.2 % Platelet Count 399 TH/MM3 Mean Platelet Volume 7.7 FL Neutrophils (%) (Auto) 53.7 % Lymphocytes (%) (Auto) 35.7 % Monocytes (%) (Auto) 4.7 % Eosinophils (%) (Auto) 4.8 % Basophils (%) (Auto) 1.1 % Neutrophils # (Auto) 3.0 TH/MM3 Lymphocytes # (Auto) 2.0 TH/MM3 Monocytes # (Auto) 0.3 TH/MM3 Eosinophils # (Auto) 0.3 TH/MM3 Basophils # (Auto) 0.1 TH/MM3 CBC Comment DIFF FINAL Differential Comment Blood Urea Nitrogen 12 MG/DL Creatinine 0.91 MG/DL Random Glucose 86 MG/DL Total Protein 8.1 GM/DL Albumin 3.6 GM/DL Calcium Level 8.4 MG/DL Alkaline Phosphatase 98 U/L Aspartate Amino Transf (AST/SGOT) 24 U/L Alanine Aminotransferase (ALT/SGPT) 18 U/L Total Bilirubin 0.5 MG/DL Sodium Level 137 MEQ/L Potassium Level 4.8 MEQ/L Chloride Level 104 MEQ/L Carbon Dioxide Level 27.7 MEQ/L Anion Gap 5 MEQ/L Estimat Glomerular Filtration Rate 81 ML/MIN Urine Color LIGHT-RED Urine Turbidity HAZY Urine pH 5.5 Urine Specific Golden 1.022 Urine Protein 30 mg/dL Urine Glucose (UA) NEG mg/dL Urine Ketones NEG mg/dL Urine Occult Blood LARGE Urine Nitrite NEG Urine Bilirubin NEG Urine Urobilinogen LESS THAN 2.0 MG/DL Urine Leukocyte Esterase SMALL Urine RBC /hpf Urine WBC 9 /hpf Urine Squamous Epithelial Cells 2 /hpf Urine Bacteria FEW /hpf Microscopic Urinalysis Comment CULTURE INDICATED MDM Medical Decision Making Medical Screen Exam Complete: Yes Emergency Medical Condition: Yes Medical Record Reviewed: Yes Differential Diagnosis Anemia versus fibroids versus ovarian cyst Narrative Course Patient is a 46-year-old female comes in complaining of vaginal bleeding. Exam shows tenderness across the lower abdomen. IV established, labs sent. Labs show hemoglobin of 10.2, it was 11.2 a few days ago. Ultrasound of the pelvis performed shows 2 ovarian cysts. Patient was given pain medicine and IV fluids. She reports feeling better. She is advised follow-up with gynecology. She says she will go to the automotive collision estimator tomorrow. Given a prescription for pain medicine. Advised to return any time for any worsening symptoms. Last 24 hours Impressions Abdomen/Pelvis/Transvag US 10/03/17 0000 Signed Impressions: Service Date/Time: Tuesday, October 03, 2017 18:35 - CONCLUSION: 1. 2 cysts in the right ovary measuring up to 2.6 cm. 2. No endometrial thickening. 3. Minimal amount of free fluid in the cul-de-sac. Cornelio De La Rosa MD Diagnosis Primary Impression: Ovarian cyst Qualified Codes: N83.201 - Unspecified ovarian cyst, right side Additional Impressions: Vaginal bleeding Anemia Qualified Codes: D64.9 - Anemia, unspecified Patient Instructions: Dysfunctional Uterine Bleeding (ED), General Instructions , Ovarian Cyst (ED) Additional Instructions: Follow up with gynecology. Take pain medicine as needed. Return to the ED as needed for any worsening symptoms. Scripts Tramadol (Tramadol) 50 Mg Tab 50 MG PO Q6H Y for PAIN, #14 TAB 0 Refills Prov: Jacklyn Horan MD 10/03/17 Disposition: DISCHARGE HOME Condition: Stable Jacklyn Horan MD Oct 03, 2017 20:34
== END 2017-10-03 20:56 | disposition home or self-care (01) ==
LOC: NEPD 16:58
DX: N83.201 Unspecified ovarian cyst, right side (principal); N93.9 Abnormal uterine and vaginal bleeding, unspecified; D64.9 Anemia, unspecified; R82.71 Bacteriuria
CPT/HCPCS: 76830; 76856; 80053; 81001; 84703; 85025; 86850; 86900; 86901; 87086; 93975; 96374; 96375; 99285; J1885; J2270; J7030

== ENCOUNTER 2017-12-28 22:03 | Emergency (ER) | payer SELFPAY ==
[~2017-12-28] VITALS: Ht 170.2 cm; Wt 104.0 kg
[~2017-12-28 22:03] MED LIST changes: -AMLO5TAB22 PO; +TRAM50TA PO
[2017-12-28 22:38] VITALS: BP 174/99; PULSE 90; RESP 18; TEMP 97.5; O2SAT 99
[2017-12-29 01:07] VITALS: BP 167/101; PULSE 92; RESP 18; O2SAT 99
[2017-12-29] MEDS ORDERED: BACIOIN6 EACH EYE (01:26)
--- NOTE | 2017-12-29 01:27 | PD ---
HPI Chief Complaint: Eye Problems/Injury Time Seen by Provider: 01:02 Travel History International Travel<30 days: No Contact w/Intl Traveler<30days: No Traveled to known affect area: No History of Present Illness HPI Patient comes in complaining of red eyes, watery, non-itchy, mildly stinging. Patient states that she put in contacts and they appeared cloudy, and after wearing it for an hour she removed them and wore her glasses immediately after removing her contacts her red eyes developed. Patient tried to wash from home but was unable to remove any type of the redness from her eyes. The redness has continued, and the patient has come to the emergency department for further evaluation. Allergies to codeine, hydrocodone, and shellfish. Past medical history significant for seasonal allergies, IBS, , tubal ligation, heart murmur. PFSH Past Medical History Heart Rhythm Problems: No Cardiac Catheterization: No Cardiovascular Problems: Yes (HEART MURMUR) High Cholesterol: No Congestive Heart Failure: No Diabetes: No Diminished Hearing: No Gastrointestinal Disorders: Yes (IBS) Heparin Induced Thrombocytopen: No Hypertension: Yes Thyroid Disease: Yes Tetanus Vaccination: > 5 Years Influenza Vaccination: No ?: Not LMP: 12/28/17 : 7 Para: 5 Miscarriage: 2 Ovarian Cysts: Yes Tubal Ligation: Yes Past Surgical History Section: Yes (X1) Coronary Artery Bypass Graft: No Gynecologic Surgery: Yes () Family History Family Myocardial Infarction: Yes (maternal grandmother) Social History Alcohol Use: Yes (WINE GLASSES EVERY NIGHT) Tobacco Use: No Substance Use: No Allergies-Medications (Allergen,Severity, Reaction): Coded Allergies: codeine (Verified Allergy, Severe, rash, 12/28/17) hydrocodone (Verified Allergy, Severe, rash, 12/28/17) shellfish derived (Verified Allergy, Severe, rash, 12/28/17) Reported Meds & Prescriptions Reported Meds & Active Scripts Active Review of Systems Except as stated in HPI: all other systems reviewed are Neg General / Constitutional: No: Fever Eyes: Positive: Redness HENT: No: Headaches Cardiovascular: No: Chest Pain or Discomfort Respiratory: No: Shortness of Breath Gastrointestinal: No: Abdominal Pain Genitourinary: No: Dysuria Musculoskeletal: No: Pain Skin: No Rash Neurologic: No: Weakness Psychiatric: No: Depression Endocrine: No: Polydipsia Hematologic/Lymphatic: No: Easy Bruising Physical Exam Narrative GENERAL: SKIN: Warm and dry. HEAD: Atraumatic. Normocephalic. EYES: Pupils equal and round. No scleral icterus. Clear ocular drainage. Fluorescein uptake to bilateral corneas. Perilimbal flush, 20/20 with correction bilaterally ENT: No nasal bleeding or discharge. Mucous membranes pink and moist. NECK: Trachea midline. No JVD. CARDIOVASCULAR: Regular rate and rhythm. RESPIRATORY: No accessory muscle use. Clear to auscultation. Breath sounds equal bilaterally. GASTROINTESTINAL: Abdomen soft, non-tender, nondistended. Hepatic and splenic margins not palpable. MUSCULOSKELETAL: Extremities without clubbing, cyanosis, or edema. No obvious deformities. NEUROLOGICAL: Awake and alert. No obvious cranial nerve deficits. Motor grossly within normal limits. Five out of 5 muscle strength in the arms and legs. Normal speech. PSYCHIATRIC: Appropriate mood and affect; insight and judgment normal. Data Data Last Documented VS Vital Signs Date Time Temp Pulse Resp B/P (MAP) Pulse Ox O2 Delivery O2 Flow Rate FiO2 12/29/17 01:07 16 12/29/17 01:07 92 167/101 (123) 99 Room Air 12/28/17 22:38 97.5 Orders Orders Naphazoline 0.012% Opth Soln (Clear Eyes (12/29/17 01:30) MDM Medical Decision Making Medical Screen Exam Complete: Yes Emergency Medical Condition: Yes Medical Record Reviewed: Yes Differential Diagnosis Corneal ulcer versus conjunctivitis versus contact conjunctivitis versus allergic conjunctivitis versus viral conjunctivitis Narrative Course Clinically the patient has a contact reactive conjunctivitis. For which she will be given Naphcon-A drops. And for the coronary ulcers that were discovered during examination the patient will be given bacitracin ophthalmic ointment to apply twice a day Diagnosis Primary Impression: Reactive conjunctivitis Additional Impression: corneal ulcers Scripts Bacitracin Opth Oint (Bacitracin Opth Oint) 500 Unit/Gm Oint 1 APPLIC EACH EYE BID for Infection for 7 Days, #1 TUBE 0 Refills Prov: Laci Davidson MD 12/29/17 Disposition: 01 DISCHARGE HOME Condition: Stable Laci Davidson MD Dec 29, 2017 01:27
[2017-12-29] MEDS ORDERED: NAPHAZOLINE HCL 0.012% OPHT SOLN 15 ML BOTTLE EACH EYE ONE (01:30)
[2017-12-29 02:18] VITALS: BP 164/99
== END 2017-12-29 02:19 | disposition home or self-care (01) ==
LOC: PHED 22:03
DX: H10.89 Other conjunctivitis (principal); H16.003 Unspecified corneal ulcer, bilateral; I10 Essential (primary) hypertension; E07.9 Disorder of thyroid, unspecified; R01.1 Cardiac murmur, unspecified
CPT/HCPCS: 99283

== ENCOUNTER 2018-01-15 18:05 | Observation (INO) | payer SELFPAY ==
[~2018-01-15] VITALS: Ht 170.2 cm; Wt 96.0 kg
[~2018-01-15 18:05] MED LIST changes: +BACIOIN6 EACH EYE; -TRAM50TA PO
[2018-01-15 18:06] VITALS: BP 172/88; PULSE 89; RESP 20; TEMP 98.4; O2SAT 100
[2018-01-15] MEDS ORDERED: ASPIRIN 81 MG CHEW TAB PO ONE (18:30)
[2018-01-15] MEDS ORDERED: SODIUM CHLORID 0.9% 500 ML INJ 500 ML IV ONE (18:30)
[2018-01-15] MEDS ORDERED: SODIUM CHLORIDE 0.9% FLUSH 10 ML FLUSH IVF PRN (18:30)
--- NOTE | 2018-01-15 18:34 | PD ---
HPI Chief Complaint: Cardiac Complaint Time Seen by Provider: 18:10 Travel History International Travel<30 days: No Contact w/Intl Traveler<30days: No Traveled to known affect area: No History of Present Illness HPI 47-year-old female presents emergency department complaining of heart fluttering , palpitations, and heavy feeling in her chest for approximately 1 week. Patient states that she started working with a outdoor fitness trainer and noticed that her palpitations increased and overall she just feels bad. Patient says that she presents today because while singing today she felt worse. She decided to go to [facility] to check her blood pressure and found that it was elevated with a systolic in the 150s. Patient states today she has occasional shortness of breath but just feels like she cannot take complete breath. Rates her pain as 5 /10 "gas pain" located under her left breast anterior aspect without radiation. Says she has occasional lightheadedness as well. Says she developed headache 2 days ago, she took it Excedrin and this decreased her headache. Patient has not followed up as an outpatient with the primary care physician, special forces officer, letterpress setter for any further issues. Her last menstrual period was 2 weeks ago. She does have a history of hypertension and hyperlipidemia. Patient was a previous smoker. She has family history of heart disease. PFSH Past Medical History Heart Rhythm Problems: No Cardiac Catheterization: No Cardiovascular Problems: Yes (HEART MURMUR) High Cholesterol: No Congestive Heart Failure: No Diabetes: No Diminished Hearing: No Gastrointestinal Disorders: Yes (IBS) Heparin Induced Thrombocytopen: No Hypertension: Yes Thyroid Disease: Yes ?: Not LMP: two weeks ago, not full seven days : 7 Para: 5 Miscarriage: 2 Ovarian Cysts: Yes Tubal Ligation: Yes Past Surgical History Section: Yes (X1) Coronary Artery Bypass Graft: No Gynecologic Surgery: Yes () Family History Family Myocardial Infarction: Yes (maternal grandmother) Social History Alcohol Use: Yes (WINE GLASSES EVERY NIGHT) Tobacco Use: No Substance Use: No Allergies-Medications (Allergen,Severity, Reaction): Coded Allergies: codeine (Verified Allergy, Severe, rash, 01/15/18) hydrocodone (Verified Allergy, Severe, rash, 01/15/18) shellfish derived (Verified Allergy, Severe, rash, 01/15/18) Reported Meds & Prescriptions Reported Meds & Active Scripts Active Review of Systems Except as stated in HPI: all other systems reviewed are Neg Physical Exam Narrative GENERAL: Well developed, well-nourished in no apparent distress SKIN: Focused skin assessment warm/dry. HEAD: Atraumatic. Normocephalic. EYES: Pupils equal and round. No scleral icterus. No injection or drainage. ENT: No nasal bleeding or discharge. Mucous membranes pink and moist. NECK: Trachea midline. No JVD. No lymphadenopathy CARDIOVASCULAR: Regular rate and rhythm. No murmur appreciated. RESPIRATORY: No accessory muscle use. Clear to auscultation. Breath sounds equal bilaterally. GASTROINTESTINAL: Abdomen soft, non-tender, nondistended. Hepatic and splenic margins not palpable. No CVA tenderness MUSCULOSKELETAL: No obvious deformities. No clubbing. No cyanosis. No edema. NEUROLOGICAL: Awake and alert. No obvious cranial nerve deficits. Motor grossly within normal limits. Normal speech. PSYCHIATRIC: Appropriate mood and affect; insight and judgment normal. Data Data Last Documented VS Vital Signs Date Time Temp Pulse Resp B/P (MAP) Pulse Ox O2 Delivery O2 Flow Rate FiO2 01/15/18 18:40 99 Room Air 01/15/18 18:39 89 20 01/15/18 18:06 98.4 Orders Orders Electrocardiogram (01/15/18 18:22) Ckmb (Isoenzyme) Profile (01/15/18 18:22) Complete Blood Count With Diff (01/15/18 18:22) Comprehensive Metabolic Panel (01/15/18 18:22) Magnesium (Mg) (01/15/18 18:22) Prothrombin Time / Inr (Pt) (01/15/18 18:22) Act Partial Throm Time (Ptt) (01/15/18 18:22) Troponin I (01/15/18 18:22) Lipase (01/15/18 18:22) Ecg Monitoring (01/15/18 18:22) Bilateral Bp Monitoring (01/15/18 18:22) Iv Access Insert/Monitor (01/15/18 18:22) Oximetry (01/15/18 18:22) Oxygen Administration (01/15/18 18:22) Aspirin Chew (Aspirin Chew) (01/15/18 18:30) Sodium Chlorid 0.9% 500 Ml Inj (Ns 500 M (01/15/18 18:30) Chest, Pa & Lat (01/15/18 18:22) Sodium Chloride 0.9% Flush (Ns Flush) (01/15/18 18:30) Urinalysis - C+S If Indicated (01/15/18 18:33) CKMB (01/15/18 18:37) CKMB% (01/15/18 18:37) Acetaminophen (Tylenol) (01/15/18 20:45) Nitroglycerin 2% Oint (Nitroglycerin 2% (01/15/18 20:45) Activity Bed Rest With Brp (01/15/18 20:41) Vital Signs (Adult) Q4H (01/15/18 20:41) Cardiac Rhythm .As Directed (01/15/18 20:41) Notify Dr: Other .PRN (01/15/18 20:41) Notify Dr. Parameters (01/15/18 20:41) Resp Oxygen Nasal Cannula (01/15/18 ) Diet Heart Healthy (01/16/18 Breakfast) Ckmb (Isoenzyme) Profile (01/15/18 21:37) Ckmb (Isoenzyme) Profile (01/16/18 00:37) Troponin I (01/15/18 21:37) Troponin I (01/16/18 00:37) Electrocardiogram (01/15/18 21:37) Electrocardiogram (01/16/18 00:37) ^ Obtain (01/15/18 20:41) Acetaminophen (Tylenol) (01/15/18 20:45) Ondansetron Inj (Zofran Inj) (01/15/18 20:45) Lawn Care Professional / Telemetry CRISTAL.Q8H (01/15/18 20:41) Admit Order (Ed Use Only) (01/15/18 20:41) Labs Laboratory Tests Test 01/15/18 18:37 01/15/18 19:38 White Blood Count 7.5 TH/MM3 Red Blood Count 4.45 MIL/MM3 Hemoglobin 11.1 GM/DL Hematocrit 34.6 % Mean Corpuscular Volume 77.6 FL Mean Corpuscular Hemoglobin 24.9 PG Mean Corpuscular Hemoglobin Concent 32.1 % Red Cell Distribution Width 16.0 % Platelet Count 404 TH/MM3 Mean Platelet Volume 7.7 FL Neutrophils (%) (Auto) 59.6 % Lymphocytes (%) (Auto) 28.7 % Monocytes (%) (Auto) 7.1 % Eosinophils (%) (Auto) 3.9 % Basophils (%) (Auto) 0.7 % Neutrophils # (Auto) 4.5 TH/MM3 Lymphocytes # (Auto) 2.1 TH/MM3 Monocytes # (Auto) 0.5 TH/MM3 Eosinophils # (Auto) 0.3 TH/MM3 Basophils # (Auto) 0.1 TH/MM3 CBC Comment DIFF FINAL Differential Comment Prothrombin Time 10.0 SEC Prothromb Time International Ratio 1.0 RATIO Activated Partial Thromboplast Time 25.7 SEC Blood Urea Nitrogen 10 MG/DL Creatinine 0.96 MG/DL Random Glucose 95 MG/DL Total Protein 7.7 GM/DL Albumin 3.6 GM/DL Calcium Level 8.4 MG/DL Magnesium Level 2.1 MG/DL Alkaline Phosphatase 98 U/L Aspartate Amino Transf (AST/SGOT) 18 U/L Alanine Aminotransferase (ALT/SGPT) 16 U/L Total Bilirubin 0.5 MG/DL Sodium Level 139 MEQ/L Potassium Level 4.0 MEQ/L Chloride Level 107 MEQ/L Carbon Dioxide Level 22.5 MEQ/L Anion Gap 10 MEQ/L Estimat Glomerular Filtration Rate 75 ML/MIN Total Creatine Kinase 262 U/L Creatine Kinase MB 1.1 NG/ML Creatine Kinase MB % 0.4 % Troponin I LESS THAN 0.02 NG/ML Lipase 172 U/L Urine Color YELLOW Urine Turbidity CLEAR Urine pH 7.0 Urine Specific [place] 1.021 Urine Protein NEG mg/dL Urine Glucose (UA) NEG mg/dL Urine Ketones NEG mg/dL Urine Occult Blood NEG Urine Nitrite NEG Urine Bilirubin NEG Urine Urobilinogen LESS THAN 2.0 MG/DL Urine Leukocyte Esterase NEG Urine WBC LESS THAN 1 /hpf Urine Squamous Epithelial Cells 1 /hpf Urine Mucus FEW /lpf Microscopic Urinalysis Comment CULT NOT INDICATED MDM Medical Decision Making Medical Screen Exam Complete: Yes Emergency Medical Condition: Yes Differential Diagnosis Angina, unstable angina, heart palpitations, atypical chest pain, pneumothorax, costochondritis Narrative Course 47-year-old female presents emergency department complaining of heart fluttering , palpitations, and heavy feeling in her chest for approximately 1 week. Patient states that she started working with a outdoor fitness trainer and noticed that her palpitations increased and overall she just feels bad. Patient says that she presents today because while singing today she felt worse. She decided to go to [facility] to check her blood pressure and found that it was elevated with a systolic in the 150s. Patient states today she has occasional shortness of breath but just feels like she cannot take complete breath. Rates her pain as 5 /10 "gas pain" located under her left breast anterior aspect without radiation. Says she has occasional lightheadedness as well. Says she developed headache 2 days ago, she took it Excedrin and this decreased her headache. Patient has not followed up as an outpatient with the primary care physician, special forces officer, letterpress setter for any further issues. Her last menstrual period was 2 weeks ago. She does have a history of hypertension and hyperlipidemia. Patient was a previous smoker. She has family history of heart disease. Vital signs stable. EKG sinus rhythm at rate 77, no STEMI changes. After review the EMR, it appears the patient had an exercise stress test 2015 which was normal. She has not followed up with any specialist or physicians as an outpatient. She was seen in April 2017 for chest pain and admitted to the chest pain center. Cardiac enzymes were negative and they did not feel the need to perform another stress test at that time. Upon a radial reevaluation and discussion with the patient and girlfriend, patient states that she is having actual pain located below her left breast rated 7/10. Nitro 0.5 inch paste administered. Tylenol 500 mg administered. Pt will be admitted to the chest pain center, r/o ACS. Diagnosis Primary Impression: Atypical chest pain Admitting Information Admitting Physician Requests: Observation Condition: Stable Isa Grayson Jan 15, 2018 18:34
[2018-01-15 18:39] VITALS: BP 155/82; PULSE 89; RESP 20; O2SAT 100
[2018-01-15 18:40] VITALS: O2SAT 99
[2018-01-15 18:52] LABS: AUTOMATED NEUTROPHIL # 4.5 TH/MM3 (1.8-7.7); BASOPHIL # 0.1 TH/MM3 (0-0.2); BASOPHIL % 0.7 % (0.0-2.0); EOSINOPHIL # 0.3 TH/MM3 (0-0.4); EOSINOPHIL % 3.9 % (0.0-4.0); HEMATOCRIT 34.6 % (35.0-46.0); HEMOGLOBIN 11.1 GM/DL (11.6-15.3); LYMPH % 28.7 % (9.0-44.0); LYMPHOCYTE # 2.1 TH/MM3 (1.0-4.8); MEAN CELL VOLUME 77.6 FL (80.0-100.0); MEAN CORPUSCULAR HEMOGLOBIN 24.9 PG (27.0-34.0); MEAN CORPUSCULAR HGB CONC 32.1 % (32.0-36.0); MEAN PLATELET VOLUME 7.7 FL (7.0-11.0); MONO % 7.1 % (0.0-8.0); MONOCYTE # 0.5 TH/MM3 (0-0.9); NEUT % 59.6 % (16.0-70.0); PLATELET COUNT 404 TH/MM3 (150-450); RED BLOOD COUNT 4.45 MIL/MM3 (4.00-5.30); WHITE BLOOD COUNT 7.5 TH/MM3 (4.0-11.0)
[2018-01-15 19:09] LABS: ALBUMIN 3.6 GM/DL (3.4-5.0); BICARBONATE 22.5 MEQ/L (21.0-32.0); BLOOD UREA NITROGEN 10 MG/DL (7-18); CALCIUM 8.4 MG/DL (8.5-10.1); CHLORIDE 107 MEQ/L (98-107); CREATININE 0.96 MG/DL (0.50-1.00); GLOMERULAR FILTRATION RATE 75 ML/MIN (>89); GLUCOSE,RANDOM 95 MG/DL (74-106); MAGNESIUM 2.1 MG/DL (1.5-2.5); SODIUM (NA) 139 MEQ/L (136-145)
[2018-01-15 19:10] LABS: ALT (GPT) 16 U/L (10-53); AST (GOT) 18 U/L (15-37)
--- NOTE | 2018-01-15 19:13 | RADRPT ---
EXAM DATE/TIME: 01/15/2018 18:59 [facility] COMPARISON: No previous studies available for comparison. INDICATIONS : Hypertensive episode. MEDICAL HISTORY : Hypertension. SURGICAL HISTORY : None. ENCOUNTER: Initial ACUITY: 1 day PAIN SCORE: 0/10 LOCATION: Bilateral chest FINDINGS: PA and lateral views of the chest demonstrate the lungs to be symmetrically aerated without evidence of mass, infiltrate or effusion. The cardiomediastinal contours are unremarkable. Osseous structure s are intact. CONCLUSION: No acute disease. Angel Parkinson MD on January 15, 2018 at 19:11 Board Certified Radiologist. This report was verified electronically.
[2018-01-15 19:14] LABS: ALKALINE PHOSPHATASE 98 U/L (45-117); TOTAL BILIRUBIN ADULT 0.5 MG/DL (0.2-1.0); TOTAL PROTEIN 7.7 GM/DL (6.4-8.2); TROPONIN I LESS THAN 0.02 NG/ML (0.02-0.05)
[2018-01-15 20:16] LABS: BILIRUBIN, URINE NEG (NEG); BLOOD, URINE NEG (NEG); GLUCOSE,URINE NEG (NEG); KETONE, URINE NEG (NEG); MUCUS URINE FEW /lpf (OCC); NITRITE,URINE NEG (NEG); SQUAMOUS EPITHELIAL CELL URINE 1 /hpf (0-5); URINE COLOR YELLOW (YELLW/STRAW); URINE LEUKOCYTE ESTERASE NEG (NEG)
[2018-01-15] MEDS ORDERED: ACETAMINOPHEN 500 MG CPLT PO ONE (20:45)
[2018-01-15] MEDS ORDERED: ONDANSETRON HCL 4 MG/2 ML VIAL IV PUSH PRN (20:45)
[2018-01-15] MEDS ORDERED: NITROGLYCERIN 2% OINT 1 GM PACKET TOPICAL ONE (20:45)
[2018-01-15 20:51] VITALS: BP 144/76; PULSE 80; RESP 18; O2SAT 99
[2018-01-15 21:19] VITALS: O2SAT 99
[2018-01-15 22:45] LABS: TROPONIN I LESS THAN 0.02 NG/ML (0.02-0.05)
[2018-01-16 01:14] VITALS: BP 116/68; PULSE 79; RESP 18; TEMP 98.2; O2SAT 98
[2018-01-16 01:32] LABS: TROPONIN I LESS THAN 0.02 NG/ML (0.02-0.05)
[2018-01-16] MEDS: ACETAMINOPHEN 500 MG CPLT PO PRN ×2 (01:46→08:49)
[2018-01-16 04:10] VITALS: PULSE 71
[2018-01-16 07:05] VITALS: PULSE 71
[2018-01-16 07:18] VITALS: BP 132/83; PULSE 74; RESP 18; TEMP 98.2; O2SAT 95
--- NOTE | 2018-01-16 08:52 | HHI.HP ---
[facility] Primary Care Physician Michel Burger MD Chief Complaint Chest pain History of Present Illness This is a 47-year-old female with history of hypertension and hyperlipidemia the presents to ED to be evaluated for chest discomfort. States that for the last 2 days she has had episodes of fluttering sensation that she describes as her heart beating rapidly. She called a friend who is a bilingual medical assistant and was advised to check her blood pressure. She checked her blood pressure and it was 170/90s. She is also feeling dizzy. Her friend advised her to go to the ED but she decided to wait. Then yesterday she developed a discomfort in her chest that she describes as a tightness. Points to the center of her chest. It remained throughout the day and still present at this point but nowhere near as intense. Found that certain movements seem to worsen the discomfort. She checked her blood pressure yesterday and it was 170/94 and so she decided to come to the ED. She was short of breath, and nauseous as well as been diaphoretic when the discomfort was the most intense. Has history of hypertension but has been off medications for 2 months as well as also being off medication for hyperlipidemia. States she no longer has a PCP to prescribe them. Denies recent illness. Denies fevers or chills. She states that she recently moved has been lifting a lot of boxes and moving furniture wonders if that could have caused her this discomfort. Review of Systems General: Patient denies fevers, chills, and recent travel. HEENT: Patient denies headache, sore throat, difficulty swallowing. Cardiovascular: Has the chest discomfort as mentioned above. Denies sensation of heart beating rapidly or irregularly. No syncope. Intermittent diaphoresis. Respiratory: Occasionally short of breath. Denies inspirational chest discomfort. Denies coughing wheezing or hemoptysis. GI: Occasionally nauseous. Patient denies vomiting, diarrhea, abdominal pain, bloody stools. Musculoskeletal: Patient denies joint pain or edema. Denies calf pain or edema. Neurovascular: Patient denies numbness, tingling, weakness in extremities. Denies headache. Endocrine: Denies polyuria and polydipsia. Hematologic: Denies easy bruising. Skin: Denies rash or itching. Past Family Social History Allergies: Coded Allergies: codeine (Verified Allergy, Severe, rash, 01/15/18) hydrocodone (Verified Allergy, Severe, rash, 01/15/18) shellfish derived (Verified Allergy, Severe, rash, 01/15/18) Past Medical History Hypertension and hyperlipidemia. States she has been off those medications for 2 months. Denies diabetes and known CAD. History of past tobacco abuse but quit smoking approximately 15 years ago. Past Surgical History Tubal ligation. Reported Medications Reported Meds & Active Scripts Active Active Ordered Medications Current Medications Medications (Trade) Dose Ordered Sig/Jovany Route Start Time Stop Time Status Last Admin (NS Flush) 2 ml UNSCH PRN IVF 01/15/18 18:30 (Tylenol) 500 mg Q4H PRN PO 01/15/18 20:45 01/16/18 01:46 (Zofran Inj) 4 mg Q6H PRN IV PUSH 01/15/18 20:45 Family History States that her father at age 67 of a myocardial infarction. Social History Quit smoking approximately 15 years ago. Prior to that she smoked about one quarter pack of cigarettes daily for 10 years. She has on average 1-2 glasses of red wine per day. Denies illicit drugs. Physical Exam Vital Signs Vital Signs Date Time Temp Pulse Resp B/P (MAP) Pulse Ox O2 Delivery O2 Flow Rate FiO2 01/16/18 07:18 98.2 74 18 132/83 (99) 95 01/16/18 04:10 71 01/16/18 01:14 98.2 79 18 116/68 (84) 98 01/15/18 21:19 99 01/15/18 20:51 80 18 144/76 (98) 99 Room Air 01/15/18 18:40 99 Room Air 01/15/18 18:40 99 Room Air 01/15/18 18:39 89 20 155/82 (106) 100 Room Air 01/15/18 18:06 98.4 89 20 172/88 (116) 100 Physical Exam GENERAL: This is a well-nourished, well-developed patient, in no apparent distress. Patient speaks in clear complete sentences. Patient is pleasant. HEENT: Head is atraumatic and normocephalic. Neck is supple without lymphadenopathy and trachea is midline. No JVD or carotid bruits. CARDIOVASCULAR: Regular rate and rhythm without murmurs, gallops, or rubs. RESPIRATORY: Clear to auscultation. Breath sounds equal bilaterally. No wheezes , rales, or rhonchi. Chest wall is tender worsening the discomfort she has been having. No use of accessory muscles. GASTROINTESTINAL: Abdomen is nontender, nondistended. Abdomen soft. No obvious pulsatile mass or bruit. No CVA tenderness. Strong femoral pulses bilaterally. Normal bowel sounds in all quadrants. MUSCULOSKELETAL: Patient is moving upper and lower extremities freely. No calf tenderness or edema, no Homans sign. Strong pulses in upper and lower extremities. NEUROLOGICAL: Patient is alert and oriented. Cranial nerves 2-12 are grossly intact. No focal deficits and speech is clear. SKIN: No rash and turgor is normal. Laboratory Laboratory Tests Test 01/15/18 18:37 01/15/18 19:38 01/15/18 21:45 01/16/18 00:35 White Blood Count 7.5 Red Blood Count 4.45 Hemoglobin 11.1 Hematocrit 34.6 Mean Corpuscular Volume 77.6 Mean Corpuscular Hemoglobin 24.9 Mean Corpuscular Hemoglobin Concent 32.1 Red Cell Distribution Width 16.0 Platelet Count 404 Mean Platelet Volume 7.7 Neutrophils (%) (Auto) 59.6 Lymphocytes (%) (Auto) 28.7 Monocytes (%) (Auto) 7.1 Eosinophils (%) (Auto) 3.9 Basophils (%) (Auto) 0.7 Neutrophils # (Auto) 4.5 Lymphocytes # (Auto) 2.1 Monocytes # (Auto) 0.5 Eosinophils # (Auto) 0.3 Basophils # (Auto) 0.1 CBC Comment DIFF FINAL Differential Comment Prothrombin Time 10.0 Prothromb Time International Ratio 1.0 Activated Partial Thromboplast Time 25.7 Blood Urea Nitrogen 10 Creatinine 0.96 Random Glucose 95 Total Protein 7.7 Albumin 3.6 Calcium Level 8.4 Magnesium Level 2.1 Alkaline Phosphatase 98 Aspartate Amino Transf (AST/SGOT) 18 Alanine Aminotransferase (ALT/SGPT) 16 Total Bilirubin 0.5 Sodium Level 139 Potassium Level 4.0 Chloride Level 107 Carbon Dioxide Level 22.5 Anion Gap 10 Estimat Glomerular Filtration Rate 75 Total Creatine Kinase 262 230 216 Creatine Kinase MB 1.1 1.2 1.0 Creatine Kinase MB % 0.4 0.5 0.5 Troponin I LESS THAN 0.02 LESS THAN 0.02 LESS THAN 0.02 Lipase 172 Urine Color YELLOW Urine Turbidity CLEAR Urine pH 7.0 Urine Specific [place] 1.021 Urine Protein NEG Urine Glucose (UA) NEG Urine Ketones NEG Urine Occult Blood NEG Urine Nitrite NEG Urine Bilirubin NEG Urine Urobilinogen LESS THAN 2.0 Urine Leukocyte Esterase NEG Urine WBC LESS THAN 1 Urine Squamous Epithelial Cells 1 Urine Mucus FEW Microscopic Urinalysis Comment CULT NOT INDICATED Result Diagram: 01/15/18183601/15/18 183 Imaging Last 48 hours Impressions Chest X-Ray 01/15/18 1822 Signed Impressions: Service Date/Time: Monday, January 15, 2018 18:59 - CONCLUSION: No acute disease. Angel Parkinson MD Course EKGs are sinus rhythm without significant ST segment depressions or elevations. Caprini VTE Risk Assessment Caprini VTE Risk Assessment: No/Low Risk (score <= 1) Caprini Risk Assessment Model Point Value = 1 Point Value = 2 Point Value = 3 Point Value = 5 Age 41-60 Minor surgery BMI > 25 kg/m2 Swollen legs Varicose veins or History of unexplained or recurrent spontaneous Oral contraceptives or hormone replacement Sepsis (< 1 month) Serious lung disease, including pneumonia (< 1 month) Abnormal pulmonary function Acute myocardial infarction Congestive heart failure (< 1 month) History of inflammatory bowel disease Medical patient at bed rest Age 61-74 Arthroscopic surgery Major open surgery (> 45 min) Laparoscopic surgery (> 45 min) Malignancy Confined to bed (> 72 hours) Immobilizing plaster cast Central venous access Age >= 75 History of VTE Family history of VTE Factor V Leiden Prothrombin [id number] Lupus anticoagulant Anticardiolipin antibodies Elevated serum homocysteine Heparin-induced thrombocytopenia Other congenital or acquired thrombophilia Stroke (< 1 month) Elective arthroplasty Hip, pelvis, or leg fracture Acute spinal cord injury (< 1 month) Prophylaxis Regimen Total Risk Factor Score Risk Level Prophylaxis Regimen 0-1 Low Early ambulation 2 Moderate Order ONE of the following: *Sequential Compression Device (SCD) *Heparin 5000 units SQ BID 3-4 Higher Order ONE of the following medications: *Heparin 5000 units SQ TID *Enoxaparin/Lovenox 40 mg SQ daily (WT < 150 kg, CrCl > 30 mL/min) *Enoxaparin/Lovenox 30 mg SQ daily (WT < 150 kg, CrCl > 10-29 mL/min) *Enoxaparin/Lovenox 30 mg SQ BID (WT < 150 kg, CrCl > 30 mL/min) AND/OR *Sequential Compression Device (SCD) 5 or more Highest Order ONE of the following medications: *Heparin 5000 units SQ TID (Preferred with Epidurals) *Enoxaparin/Lovenox 40 mg SQ daily (WT < 150 kg, CrCl > 30 mL/min) *Enoxaparin/Lovenox 30 mg SQ daily (WT < 150 kg, CrCl > 10-29 mL/min) *Enoxaparin/Lovenox 30 mg SQ BID (WT < 150 kg, CrCl > 30 mL/min) AND *Sequential Compression Device (SCD) Assessment and Plan Assessment and Plan * Chest pain: Patient has had serial cardiac enzymes and EKGs for ruling out purposes. Sounds like the discomfort may be musculoskeletal. Patient will be seen by Dr. Neal Gonzalez of cardiology in the Chest pain center. Patient does have multiple risk factors for coronary artery disease and subsequently will have a Chong protocol ETT. She will be discharged home if her stress test is nonischemic with instructions to follow-up with PCP. Return to ED for interval issues. * Hypertension: States she ran out of amlodipine 2 months ago. Her blood pressure was initially elevated in the ED but since has been normotensive. Patient to continue monitor follow-up with PCP. * Hyperlipidemia: Patient needs to be followed up with PCP and recently started on statin therapy. Patient is stable at this time. She is agreeable to this plan. Abran Frausto Jan 16, 2018 08:52
--- NOTE | 2018-01-16 10:12 | HHI.DCPOC ---
Discharge Care Plan Diagnosis: (1) Atypical chest pain Goals to Promote Your Health * To prevent worsening of your condition and complications * To maintain your health at the optimal level Directions to Meet Your Goals Take your medications as prescribed Follow your dietary instruction Follow activity as directed Keep your appointments as scheduled Take your immunizations and boosters as scheduled If your symptoms worsen call your PCP, if no PCP go to Urgent Care Center or Emergency Room Smoking is Dangerous to Your Health. Avoid second hand smoke Call the 24-hour hour crisis hotline for domestic abuse at Abran Frausto Jan 16, 2018 10:12
--- NOTE | 2018-01-16 10:14 | EKG ---
Date Performed: 01/15/2018 Time Performed: 22:36:49 PTAGE: 47 years EKG: Sinus rhythm MODERATE VOLTAGE CRITERIA FOR LVH, CONSIDER NORMAL VARIANT NONSPECIFIC T-WAVE ABNORMALITY BORDERLINE ECG PREVIOUS TRACING : 01/15/2018 18.41 Since previous tracing, t wave changes are new DOCTOR: Neal Gonzalez Interpretating Date/Time 01/16/2018 10:13:37
--- NOTE | 2018-01-16 10:16 | EKG ---
Date Performed: 01/15/2018 Time Performed: 18:41:39 PTAGE: 47 years EKG: Sinus rhythm BORDERLINE LEFT AXIS DEVIATION VOLTAGE CRITERIA FOR LVH ABNORMAL ECG PREVIOUS TRACING : 05/07/2017 10.11 Since previous tracing, no significant change noted DOCTOR: Neal Gonzalez Interpretating Date/Time 01/16/2018 10:14:42
--- NOTE | 2018-01-16 10:18 | EKG ---
Date Performed: 01/16/2018 Time Performed: 01:19:34 PTAGE: 47 years EKG: Sinus rhythm VOLTAGE CRITERIA FOR LVH NONSPECIFIC T-WAVE ABNORMALITY ABNORMAL ECG PREVIOUS TRACING : 01/15/2018 22.36 Since previous tracing, no significant change noted DOCTOR: Neal Gonzalez Interpretating Date/Time 01/16/2018 10:16:35
--- NOTE | 2018-01-16 10:19 | TR ---
Date Performed: 01/16/2018 Time Performed: 09:22:34 DOCTOR: Neal Gonzalez DRUG LIST: CLINICAL HISTORY: REASON FOR TEST: REASON FOR ENDING: OBSERVATION: CONCLUSION: KANDICE PROTOCOL. NO CP. TEST STOPPED AFTER EXCEEDING GOAL HR SECONDARY TO SOB AND LEG FATIGUE.Maximum WM=437 % Max HR Achieved=87.0% Maximum IN=115/98 Total Exercise Time=5:30 COMMENTS: Patient exercised using the Kandice protocol. No electrocardiographic changes were seen to suggest ischemia. Hemodynamic response to exercise was normal. No significant arrhythmia was prese nt.
== END 2018-01-16 11:01 | disposition home or self-care (01) ==
LOC: NEPC 18:05 → NEDA 20:44 → NEPFCDU 21:30
DX: R07.9 Chest pain, unspecified (principal); I10 Essential (primary) hypertension; E78.5 Hyperlipidemia, unspecified; R06.02 Shortness of breath; R42 Dizziness and giddiness; R51 Headache; Z87.891 Personal history of nicotine dependence; Z82.49 Family history of ischemic heart disease and other diseases of the circulatory system; R01.1 Cardiac murmur, unspecified; K58.9 Irritable bowel syndrome, unspecified; R61 Generalized hyperhidrosis; R94.31 Abnormal electrocardiogram [ECG] [EKG]
CPT/HCPCS: 71046; 80053; 81001; 82550; 82552; 83690; 83735; 84484; 85025; 85610; 85730; 93005; 93017; 96360; 96361; 99285; G0378; J7040

== ENCOUNTER 2018-03-19 18:25 | Emergency (ER) | payer SELFPAY ==
[~2018-03-19] VITALS: Ht 170.2 cm; Wt 105.0 kg
[2018-03-19 18:56] VITALS: BP 157/84; PULSE 95; RESP 16; TEMP 98.7; O2SAT 100
[2018-03-19] MEDS ORDERED: LISI10TA3 PO (19:02)
[2018-03-19] MEDS ORDERED: SODIUM CHLOR 0.9% 1000 ML INJ 1,000 ML IV ONE (19:15)
[2018-03-19] MEDS ORDERED: METOCLOPRAMIDE HCL 10 MG/2 ML VIAL IV PUSH ONE (19:15)
--- NOTE | 2018-03-19 19:24 | PD ---
HPI Chief Complaint: Seizure Time Seen by Provider: 19:04 Travel History International Travel<30 days: No Contact w/Intl Traveler<30days: No Traveled to known affect area: No History of Present Illness HPI The patient is a 47 year old female who presents to the [facility] emergency department with a history of syncopal event that occurred prior to arrival. The patient reports that over the last few days she has been under increased stress. The patient reports that today her daughter was graduating. She reports that she did not eat or drink anything since 5 PM yesterday. She also reports that she forgot to take her blood pressure medication today. In the afternoon she began to have palpitations, sensation of feeling hot with lightheaded sensation, nausea, bitemporal headache. The patient was offered food by her family and went to stand up having a syncopal event. The patient denies any injury related to the syncopal event. She reports continued nausea. She reports having dry heaves prior to arrival. She reports having diarrhea 1 today. She reports that 3 days ago she had 3 days of diarrhea. She reports that the first day she was having it once every 1-2 hours and that is slowly began to decrease in frequency. She denies having any blood in her stool or black or tarry stools. She denies having any mucus in her stool. On review of systems otherwise, the patient denies having any known recent fevers, neck pain , chest pain, shortness of breath, abdominal pain, urinary symptoms, one-sided weakness, slurred speech, facial droop, difficulty with word finding ability, vision changes, or numbness or tingling to her extremities. The patient reports having nasal congestion and clear rhinorrhea recently. She reports that she is attributed this to her allergies being exacerbated recently. [facility] Past Medical History Narrative Medical The patient's past medical history is significant for hyperlipidemia, hypertension Heart Rhythm Problems: No Cardiac Catheterization: No Cardiovascular Problems: Yes (HEART MURMUR) High Cholesterol: Yes Congestive Heart Failure: No Diabetes: No Diminished Hearing: No Gastrointestinal Disorders: Yes (IBS) Heparin Induced Thrombocytopen: No Hypertension: Yes Thyroid Disease: Yes ?: Not : 7 Para: 5 Miscarriage: 2 Ovarian Cysts: Yes Tubal Ligation: Yes Past Surgical History Narrative Surgical The patient's past surgical history is significant for , bilateral tubal ligation Section: Yes (X1) Coronary Artery Bypass Graft: No Gynecologic Surgery: Yes () Family History Family Myocardial Infarction: Yes (GRANDPARENTS) Social History Alcohol Use: Yes (OCC) Tobacco Use: No Substance Use: No Allergies-Medications (Allergen,Severity, Reaction): Coded Allergies: codeine (Verified Allergy, Severe, rash, 03/19/18) hydrocodone (Verified Allergy, Severe, rash, 03/19/18) shellfish derived (Verified Allergy, Severe, rash, 03/19/18) Reported Meds & Prescriptions Reported Meds & Active Scripts Active Reported Lisinopril 10 Mg Tab 10 Mg PO DAILY Review of Systems Except as stated in HPI: all other systems reviewed are Neg General / Constitutional: No: Fever Eyes: No: Visual changes HENT: Positive: Lightheadedness, Rhinitis, Rhinorrhea, Congestion, No: Headaches, Vertigo, Sore Throat, Neck Stiffness, Neck Pain Cardiovascular: Positive: Palpitations, No: Chest Pain or Discomfort, Tachycardia, Dyspnea on exertion Respiratory: Positive: Cough, No: Shortness of Breath Gastrointestinal: Positive: Nausea, Vomiting, Diarrhea, Changes in Bowel Habits , No: Abdominal Pain, Hematemesis, Hematochezia, Indigestion, Loss of Appetite Genitourinary: No: Dysuria Musculoskeletal: No: Pain Skin: No Rash Neurologic: Positive: Dizziness, Syncope, Headache, No: Weakness, Focal Abnormalities, Change in Mentation, Slurred Speech, Sensory Disturbance Psychiatric: No: Depression Endocrine: No: Polydipsia Hematologic/Lymphatic: No: Easy Bruising Physical Exam Narrative General: The patient is a well-developed well-nourished female in no acute distress. Head and Neck exam: Head is normocephalic atraumatic. Eyes: EOMI, pupils are equal round and reactive to light. Nose: Midline septum with pink mucous membranes Mouth: Dentition unremarkable. Moist mucus membranes. Posterior oropharynx is not erythematous. No tonsillar hypertrophy. Uvula midline. Airway patent. Neck: No palpable lymphadenopathy. No nuchal rigidity. No thyromegaly. No spinous process tenderness to palpation. No step-off or crepitus. No erythema or ecchymosis. Cardiovascular: Regular rate and rhythm without murmurs, gallops, or rubs. No pulse deficit to the extremities on simultaneous auscultation and palpation of her radial artery. Lungs: Clear to auscultation bilaterally. No wheezes, rhonchi, or rales. Abdomen: Soft, without tenderness to palpation in all 4 quadrants of the abdomen. No guarding, rebound, or rigidity. Normal bowel sounds are audible. No tenderness on palpation of McBurney's point. Negative Phillip sign. Extremities: No clubbing, cyanosis, or edema. 2+ pulses in all 4 extremities. No calf tenderness on palpation. Back: No spinous process tenderness to palpation. No step-off or crepitus. No erythema or ecchymosis. No costovertebral angle tenderness to palpation. Neurologic Exam: Cranial nerves 2-12 were intact on exam. Strength is 5/5 in all 4 extremities. No sensory deficits noted. No dysdiadochokinesis. Good finger to nose and Heel to mcdermott bilaterally. Skin Exam: No rash noted. Intact skin that is warm and dry. Data Data Last Documented VS Vital Signs Date Time Temp Pulse Resp B/P (MAP) Pulse Ox O2 Delivery O2 Flow Rate FiO2 03/19/18 19:38 98 Room Air 03/19/18 19:37 97 16 98 16 103 03/19/18 18:56 98.7 Orders Orders Electrocardiogram (03/19/18 19:15) Complete Blood Count With Diff (03/19/18 19:15) Comprehensive Metabolic Panel (03/19/18 19:15) Creatine Kinase (Cpk) (03/19/18 19:15) Ckmb (Isoenzyme) Profile (03/19/18 19:15) Troponin I (03/19/18 19:15) B-Type Natriuretic Peptide (03/19/18 19:15) Prothrombin Time / Inr (Pt) (03/19/18 19:15) Act Partial Throm Time (Ptt) (03/19/18 19:15) Lipase (03/19/18 19:15) Urinalysis - C+S If Indicated (03/19/18 19:15) Magnesium (Mg) (03/19/18 19:15) Thyroid Stimulating Hormone (03/19/18 19:15) Chest, Single Ap (03/19/18 19:15) Ct Brain W/O Iv Contrast(Rout) (03/19/18 19:15) Iv Access Insert/Monitor (03/19/18 19:15) Ecg Monitoring (03/19/18 19:15) Oximetry (03/19/18 19:15) Orthostatic Vital Signs (03/19/18 19:15) Ed Urine Pregnancytest Poc (03/19/18 19:15) Sodium Chlor 0.9% 1000 Ml Inj (Ns 1000 M (03/19/18 19:15) Metoclopramide Inj (Reglan Inj) (03/19/18 19:15) CKMB (03/19/18:) CKMB% (03/19/18:) Labs Laboratory Tests Test 03/19/18:26 03/19/18 19:45 White Blood Count 6.8 TH/MM3 Red Blood Count 4.07 MIL/MM3 Hemoglobin 10.0 GM/DL Hematocrit 31.1 % Mean Corpuscular Volume 76.4 FL Mean Corpuscular Hemoglobin 24.6 PG Mean Corpuscular Hemoglobin Concent 32.2 % Red Cell Distribution Width 16.5 % Platelet Count 383 TH/MM3 Mean Platelet Volume 7.7 FL Neutrophils (%) (Auto) 72.5 % Lymphocytes (%) (Auto) 17.0 % Monocytes (%) (Auto) 5.8 % Eosinophils (%) (Auto) 4.0 % Basophils (%) (Auto) 0.7 % Neutrophils # (Auto) 5.0 TH/MM3 Lymphocytes # (Auto) 1.2 TH/MM3 Monocytes # (Auto) 0.4 TH/MM3 Eosinophils # (Auto) 0.3 TH/MM3 Basophils # (Auto) 0.0 TH/MM3 CBC Comment DIFF FINAL Differential Comment Prothrombin Time 10.2 SEC Prothromb Time International Ratio 1.0 RATIO Activated Partial Thromboplast Time 27.5 SEC Blood Urea Nitrogen 13 MG/DL Creatinine 0.82 MG/DL Random Glucose 91 MG/DL Total Protein 7.3 GM/DL Albumin 3.6 GM/DL Calcium Level 8.6 MG/DL Magnesium Level 2.1 MG/DL Alkaline Phosphatase 84 U/L Aspartate Amino Transf (AST/SGOT) 18 U/L Alanine Aminotransferase (ALT/SGPT) 16 U/L Total Bilirubin 0.8 MG/DL Sodium Level 139 MEQ/L Potassium Level 3.5 MEQ/L Chloride Level 107 MEQ/L Carbon Dioxide Level 22.1 MEQ/L Anion Gap 10 MEQ/L Estimat Glomerular Filtration Rate 90 ML/MIN Total Creatine Kinase 168 U/L Creatine Kinase MB 1.1 NG/ML Troponin I LESS THAN 0.02 NG/ML B-Type Natriuretic Peptide 7 PG/ML Lipase 67 U/L Thyroid Stimulating Hormone 3rd Gen 1.370 uIU/ML Urine Color YELLOW Urine Turbidity HAZY Urine pH 5.5 Urine Specific [place] 1.028 Urine Protein TRACE mg/dL Urine Glucose (UA) NEG mg/dL Urine Ketones NEG mg/dL Urine Occult Blood NEG Urine Nitrite NEG Urine Bilirubin NEG Urine Urobilinogen LESS THAN 2.0 MG/DL Urine Leukocyte Esterase TRACE Urine RBC 1 /hpf Urine WBC 3 /hpf Urine Squamous Epithelial Cells 6 /hpf Urine Mucus FEW /lpf Microscopic Urinalysis Comment CULT NOT INDICATED MDM Medical Decision Making Medical Screen Exam Complete: Yes Emergency Medical Condition: Yes Medical Record Reviewed: Yes Differential Diagnosis Orthostasis, versus dehydration, versus electrolyte derangements, versus cardiac arrhythmia Narrative Course During the course of the patient's emergency department visit, the patient's history, examination, and differential diagnosis were reviewed with the patient. The patient was placed on a cardiac cath technologist with oximetry and frequent blood pressure monitoring. The patient had IV access obtained and blood work sent for analysis. The patient had an EKG done on arrival. The patient's EKG shows a sinus rhythm heart rate of 96, QRS duration 85 ms, QTC 425 ms, no acute ST segment elevation or depression. T waves are inverted in V1. Orthostatic vital signs were done and negative for orthostasis. The patient was initially provided normal saline 1 L IV fluid bolus. The patient's laboratory studies were reviewed and remarkable for a white count of 6.8, hemoglobin 10, platelets 383 with 72.5 neutrophils, CMP is within normal limits, CPK 168, troponin I less than 0.02, lipase 67, TSH within normal limits, BNP is 7. PT 10.2, PTT 27.5. Urinalysis shows trace leukocyte esterase , few mucus, culture not indicated. Radiology studies were reviewed and remarkable for Last Impressions Head CT 03/19/181914 Signed Impressions: CONCLUSION: 1. Negative CT Head non contrast. Chest X-Ray 03/19/181914 Signed Impressions: CONCLUSION: Negative examination. The patient was reportedly feeling improved after IV hydration. The patient was able to ambulate in the emergency department with a steady gait. The patient will be discharged home. The patient is encouraged to take her blood pressure medication on a scheduled basis. The patient is encouraged to eat regularly scheduled meals and stay well-hydrated. The patient is resting comfortably and feels better, is alert and in no distress. The patient's results and examination findings were discussed with the patient. The repeat examination is unremarkable and benign. The history, exam, diagnostic testing, and current condition do not suggest any significant pathology to warrant further testing, continued ED treatment, admission, or surgical evaluation at this point. The vital signs have been stable. The patient does not have uncontrollable pain, intractable vomiting, or other significant symptoms. The patient's condition is stable and appropriate for discharge. The patient will pursue further outpatient evaluation with a primary care physician or other designated or consulting physician as indicated in the discharge instructions. The patient is instructed to report back to the emergency department immediately for reexamination in the mean time if he/ she develops any new or worsening signs or symptoms. The patient expressed understanding and was agreeable with this plan. Diagnosis Primary Impression: Syncope Qualified Codes: R55 - Syncope and collapse Referrals: Primary Care Physician 2 days Patient Instructions: General Instructions, Syncope (ED) Med/Other Pt SpecificInfo: Prescription(s) given Disposition: 01 DISCHARGE HOME Condition: Stable Barbi Thibodeaux MD Mar 19, 2018 19:24
[2018-03-19 19:37] VITALS: BP_SYST 16; BP_SYST 167; BP_SYST 169; BP_DIAS 86; BP_DIAS 92; BP_DIAS 95; RESP 16
[2018-03-19 19:38] VITALS: O2SAT 98
--- NOTE | 2018-03-19 19:41 | RADRPT ---
EXAM DATE: 03/19/2018 7:26 PM EDT AGE/SEX: 47 years / Female INDICATIONS: Syncope CLINICAL DATA: This is the patient's initial encounter. Patient reports that signs and symptoms have been present for 1 day and indicates a pain score of 0/10. MEDICAL/SURGICAL HISTORY: Hypertension. None. COMPARISON: [facility] [place]ST SINGLE AP, 05/07/2017. . FINDINGS: A single AP view of the chest demonstrates the lungs to be symmetrically aerated without evidence of mass, infiltrate or effusion. The cardiomediastinal contours are unremarkable. Osseous structures a re intact. CONCLUSION: Negative examination. Electronically signed by: Juan Shelton MD 03/19/2018 7:40 PM EDT
[2018-03-19 20:14] LABS: BASOPHIL % 0.7 % (0.0-2.0); EOSINOPHIL # 0.3 TH/MM3 (0-0.4); HEMATOCRIT 31.1 % (35.0-46.0); LYMPHOCYTE # 1.2 TH/MM3 (1.0-4.8); MEAN CELL VOLUME 76.4 FL (80.0-100.0); MEAN CORPUSCULAR HEMOGLOBIN 24.6 PG (27.0-34.0); MEAN CORPUSCULAR HGB CONC 32.2 % (32.0-36.0); MEAN PLATELET VOLUME 7.7 FL (7.0-11.0); MONO % 5.8 % (0.0-8.0); MONOCYTE # 0.4 TH/MM3 (0-0.9); NEUT % 72.5 % (16.0-70.0); PLATELET COUNT 383 TH/MM3 (150-450); RED BLOOD COUNT 4.07 MIL/MM3 (4.00-5.30); RED CELL DISTRIBUTION WIDTH 16.5 % (11.6-17.2); WHITE BLOOD COUNT 6.8 TH/MM3 (4.0-11.0)
[2018-03-19 20:21] LABS: BILIRUBIN, URINE NEG (NEG); BLOOD, URINE NEG (NEG); GLUCOSE,URINE NEG (NEG); KETONE, URINE NEG (NEG); MUCUS URINE FEW /lpf (OCC); NITRITE,URINE NEG (NEG); PH, URINE 5.5 (5.0-8.5); SQUAMOUS EPITHELIAL CELL URINE 6 /hpf (0-5); URINE COLOR YELLOW (YELLW/STRAW); URINE LEUKOCYTE ESTERASE TRACE (NEG)
--- NOTE | 2018-03-19 20:22 | RADRPT ---
EXAM DATE: 03/19/2018 8:20 PM EDT AGE/SEX: 47 years / Female INDICATIONS: Syncope. Cephalgia. Possible seizure. CLINICAL DATA: This is the patient's initial encounter. Patient reports that signs and symptoms have been present for 1 day and indicates a pain score of 4/10. MEDICAL/SURGICAL HISTORY: Cardiovascular disease. Hypertension. Tubal ligation. RADIATION DOSE: 39.92 CTDI (mGy) COMPARISON: No prior [place] exams available for comparison. TECHNIQUE: CT of the head without contrast. Using automated exposure control and adjustment of the mA and/or kV according to patient size, radiation dose was kept as low as reasonably achievable to ob tain optimal diagnostic quality images. FINDINGS: Cerebrum: The ventricles are normal for age. No evidence of midline shift, mass lesion, hemorrhage or acute infarction. No extraaxial fluid collections are seen. Posterior Fossa: The cerebellum and brainstem are intact. The 4th ventricle is midline. The cerebe llopontine angle is unremarkable. Extracranial: The visualized portion of the orbits is intact. Skull: The calvaria is intact. No evidence of skull fracture. CONCLUSION: 1. Negative CT Head non contrast. Electronically signed by: Juan Shelton MD 03/19/2018 8:21 PM EDT
[2018-03-19 20:26] LABS: PROTHROMBIN TIME - PATIENT 10.2 SEC (9.8-11.6)
[2018-03-19 20:29] LABS: ALBUMIN 3.6 GM/DL (3.4-5.0); AST (GOT) 18 U/L (15-37); BICARBONATE 22.1 MEQ/L (21.0-32.0); BLOOD UREA NITROGEN 13 MG/DL (7-18); CALCIUM 8.6 MG/DL (8.5-10.1); CHLORIDE 107 MEQ/L (98-107); CREATININE 0.82 MG/DL (0.50-1.00); GLOMERULAR FILTRATION RATE 90 ML/MIN (>89); GLUCOSE,RANDOM 91 MG/DL (74-106); MAGNESIUM 2.1 MG/DL (1.5-2.5); SODIUM (NA) 139 MEQ/L (136-145)
[2018-03-19 20:40] LABS: ALKALINE PHOSPHATASE 84 U/L (45-117); ALT (GPT) 16 U/L (10-53); TOTAL BILIRUBIN ADULT 0.8 MG/DL (0.2-1.0); TOTAL PROTEIN 7.3 GM/DL (6.4-8.2); TROPONIN I LESS THAN 0.02 NG/ML (0.02-0.05)
--- NOTE | 2018-03-20 09:31 | EKG ---
Date Performed: 03/19/2018 Time Performed: 19:30:32 PTAGE: 47 years EKG: Sinus rhythm VOLTAGE CRITERIA FOR LVH ABNORMAL ECG PREVIOUS TRACING : 01/16/2018 01.19 Since the previous tracing, no significant change noted DOCTOR: Neal Gonzalez Interpretating Date/Time 03/20/2018 09:29:02
== END 2018-03-19 22:24 | disposition home or self-care (01) ==
LOC: NEPC 18:25
DX: R55 Syncope and collapse (principal); R94.31 Abnormal electrocardiogram [ECG] [EKG]; R11.0 Nausea; R19.7 Diarrhea, unspecified; R01.1 Cardiac murmur, unspecified; E78.00 Pure hypercholesterolemia, unspecified; I10 Essential (primary) hypertension; E07.9 Disorder of thyroid, unspecified; Z87.19 Personal history of other diseases of the digestive system
CPT/HCPCS: 70450; 71045; 80053; 81001; 82550; 82552; 83690; 83735; 83880; 84443; 84484; 84703; 85025; 85610; 85730; 93005; 96374; 99285; J2765; J7030